=== PATIENT | male | born 1940 | race Hispanic/Latino ===

== ENCOUNTER 2019-11-20 00:20 | Emergency (ER) | payer SELFPAY ==
[2019-11-20 01:24] LABS: #Eosinphils 0.2 thou/uL (0.0-0.7); #Lymphocytes 1.1 thou/uL (1.20-3.40); #Monocytes 0.8 thou/uL (0.11-0.59); %Basophils 0.3 % (0.0-1.0); %Eosinophils 1.9 % (0.0-10.0); %Lymphocytes 10.9 % (21.0-51.0); %Monocytes 8.1 % (0.0-10.0); %Neutrophils 78.7 % (42.0-75.0); Hemoglobin 11.3 g/dL (14.0-18.0); Mean Corpuscular HGB CONC 35.4 g/dL (32.0-36.0); Mean Corpuscular Hemoglobin 30.9 pg (27.0-31.0); Mean Corpuscular Volume 87.4 fL (78.0-98.0); Mean Platelet Volume 6.9 fL (7.4-10.4); Platelet Count 194 thou/uL (130-400); Red Blood Cell (RBC) Count 3.65 mill/uL (4.70-6.10); White Blood Cell (WBC) Count 10.1 thou/uL (4.8-10.8)
[2019-11-20 01:47] LABS: ALT (SGPT) 9 U/L (8-55); AST (SGOT) 21 U/L (5-34); Albumin 3.6 g/dL (3.4-4.8); Alkaline Phosphatase 67 U/L (40-110); Anion Gap 14 mmol/L (10-20); BUN (Urea Nitrogen) 21 mg/dL (8.4-25.7); Bilirubin, Total 0.6 mg/dL (0.2-1.2); Calc. Creatinine Clearance 0 mL/min (70-130); Calcium 9.2 mg/dL (7.8-10.44); Carbon Dioxide 24 mmol/L (23-31); Chloride 99 mmol/L (98-107); Estimated GFR-MDRD 69; Globulin 3.8 g/dL (2.4-3.5); Glucose 197 mg/dL (83-110); Potassium 4.7 mmol/L (3.5-5.1); Protein, Total 7.4 g/dL (5.8-8.1); Sodium 132 mmol/L (136-145); Uric Acid 5.1 mg/dL (3.5-7.2)
[2019-11-20] MEDS ORDERED: Clindamycin/D5W 600 mg/50 ml Premix Bag ONE (02:18)
--- NOTE | 2019-11-20 07:44 | RAD ---
EXAM: XR Ankle Lt 3 View STANDARD PROVIDED CLINICAL HISTORY: Pain FINDINGS: There is no evidence for fracture or other acute osseous abnormality. Alignment appears anatomic. Portia nt spaces appear preserved. Extensive vascular calcifications are seen. IMPRESSION: No evidence for an acute osseous abnormality. If there is persistent clinical concern, conservative m anagement and follow-up imaging advised.
== END 2019-11-20 02:55 | disposition home or self-care (01) ==
LOC: ERS 00:20
DX: L03.116 Cellulitis of left lower limb (principal); E11.9 Type 2 diabetes mellitus without complications; I10 Essential (primary) hypertension; Z86.73 Personal history of transient ischemic attack (TIA), and cerebral infarction without residual deficits; Z79.899 Other long term (current) drug therapy; Z79.84 Long term (current) use of oral hypoglycemic drugs
CPT/HCPCS: 80053; 84550; 85025; 85652; 86140; 96365; J3490

== ENCOUNTER 2019-12-08 16:16 | Emergency (ER) | payer SELFPAY ==
--- NOTE | 2019-12-08 17:58 | RAD ---
THREE VIEWS LEFT FOOT: 12/08/19 HISTORY: Joint pain left foot. COMPARISON: 11/20/19. FINDINGS: There is no evidence of a fracture or dislocation. Alignment appears anatomic. Extensive vascular esperanza cifications are again seen about the foot. Views of the left foot are stable compared to the prior ex am. IMPRESSION: Stable views left foot without evidence of an acute osseous abnormality. If there is persistent clini esperanza concern, conservative management and follow-up imaging is advised. POS: JABIER
== END 2019-12-08 18:00 | disposition home or self-care (01) ==
LOC: ERS 16:16
DX: E11.621 Type 2 diabetes mellitus with foot ulcer (principal); L97.429 Non-pressure chronic ulcer of left heel and midfoot with unspecified severity; I10 Essential (primary) hypertension; Z79.84 Long term (current) use of oral hypoglycemic drugs; Z79.899 Other long term (current) drug therapy

== ENCOUNTER 2020-06-03 18:54 | Inpatient (IN) | payer SELFPAY ==
[~2020-06-03 18:54] MED LIST: Iopamidol-370 76% 500 ML 1 ML ONE
[2020-06-03 19:43] LABS: #Eosinphils 0.1 thou/uL (0.0-0.7); #Lymphocytes 0.7 thou/uL (1.20-3.40); #Monocytes 0.5 thou/uL (0.11-0.59); %Basophils 0.4 % (0.0-1.0); %Eosinophils 0.5 % (0.0-10.0); %Monocytes 4.7 % (0.0-10.0); %Neutrophils 88.4 % (42.0-75.0); Hemoglobin 12.4 g/dL (14.0-18.0); Mean Corpuscular HGB CONC 34.8 g/dL (32.0-36.0); Mean Corpuscular Volume 86.1 fL (78.0-98.0); Mean Platelet Volume 7.1 fL (7.4-10.4); Platelet Count 227 thou/uL (130-400); RBC Distribution Width 12.3 % (11.5-14.5); Red Blood Cell (RBC) Count 4.14 mill/uL (4.70-6.10); White Blood Cell (WBC) Count 11.3 thou/uL (4.8-10.8)
[2020-06-03] MEDS ORDERED: Ondansetron PF 4 MG/2 ML Vial ONE (19:52)
[2020-06-03] MEDS ORDERED: Morphine 4 MG/ML VIAL ONE (19:52)
[2020-06-03 19:59] LABS: Bacteria/HPF None Seen HPF (None Seen); Bilirubin Negative (Negative); Blood, Urine Trace (Negative); Clarity Clear (Clear); Glucose, Urine (Dipstick) Normal (Negative); Ketone, Urine Negative (Negative); Leukocyte 75 Leu/uL (Negative); Nitrite Negative (Negative); Protein, Urine (Dipstick) 300 mg/dL (Neg-Trace); Renal Epithelial 0-3 HPF (None Seen); Specific Gravity, Urine 1.019 (1.002-1.036); Squamous Epithelial 0-3 HPF (0-3); Urobilinogen 3 mg/dL (Less than 2)
[2020-06-03 20:38] LABS: ALT (SGPT) 10 U/L (8-55); AST (SGOT) 16 U/L (5-34); Albumin 4.1 g/dL (3.4-4.8); Alkaline Phosphatase 79 U/L (40-110); Anion Gap 14 mmol/L (10-20); BUN (Urea Nitrogen) 17 mg/dL (8.4-25.7); Bilirubin, Total 0.8 mg/dL (0.2-1.2); Calc. Creatinine Clearance 0 mL/min (70-130); Calcium 9.5 mg/dL (7.8-10.44); Carbon Dioxide 27 mmol/L (23-31); Chloride 96 mmol/L (98-107); Estimated GFR-MDRD 59; Globulin 3.5 g/dL (2.4-3.5); Glucose 219 mg/dL (83-110); Lipase 51 U/L (8-78); Potassium 4.6 mmol/L (3.5-5.1); Protein, Total 7.6 g/dL (5.8-8.1); Sodium 132 mmol/L (136-145)
[2020-06-03] MEDS ORDERED: hydrALAZINE 20 MG/ML VIAL ONE (20:46)
--- NOTE | 2020-06-03 21:58 | CT ---
CT ABDOMEN AND PELVIS WITH IV CONTRAST 06/03/2020 CLINICAL INFORMATION: Right lower quadrant abdominal pain. COMPARISON: None. Technique: Multiple contiguous axial CT images are obtained through the abdomen and pelvis with IV contrast. Cor onal reformatted images are provided. FINDINGS: Lower Chest: Dependent bibasilar atelectasis is present Vessels: Vascular calcifications and atherosclerotic plaque are seen in the lower thoracic as well as abdominal aorta and iliac arteries. Abdomen: Portal vein:Patent Gallbladder: Within normal limits for CT imaging. Liver: within normal limits. Spleen: within normal limits. Pancreas: within normal limits. Adrenals: Mild symmetric thickening of each adrenal gland without nodule seen. Kidneys: Mild cortical scarring is present. Kidneys otherwise demonstrate a normal CT appearance bila terally. Bowel: The stomach is prominently distended with contrast and gas, and there are dilated loops of pro ximal small bowel with loops of small bowel measuring up to 3.9 cm. Loops of small bowel are dilated up to loops of small bowel within the right lower quadrant/upper pelvis which demonstrate fec ulent type material within the small bowel lumen in this region, and this may be related to a phytobezoar. Loops of small bowel distal to this region are normal in caliber. There is a moderate amount retained fecal material seen throughout the colon. Appendix: Not visualized on this examination. There is significant motion seen in the right lower mitra drant due to patient movement. Peritoneum: No ascites or free air; no fluid collection. Mesentery and Retroperitoneum: No enlarged mesenteric or retroperitoneal lymph nodes. Abdominal Wall: There is a low-density area seen in the right inguinal canal,, this could potentially represent site of prior hernia repair or possibly related to fluid. No free intraperitoneal fluid is identified. Pelvis: Reproductive Organs: No pelvic masses. Pelvis within normal limits. Bladder: within normal limits. Bones: Degenerative changes are seen in the spine. IMPRESSION: 1. Evidence of a partial small bowel obstruction with transition zone in the right upper pelvis where there is a dilated loop of small bowel containing feculent type material which may be secondary to phytobezoar. Loops of small bowel distal to this region are normal in caliber. 2. Constipation. 3. Nonvisualization of the appendix due to prominent motion artifact in the right lower quadrant.
[2020-06-03] MEDS ORDERED: Ondansetron PF 4 MG/2 ML Vial IVP PRN (23:58)
[2020-06-03] MEDS ORDERED: Acetaminophen 650 MG Suppository PR PRN (23:58)
[2020-06-04] MEDS ORDERED: HumaLOG 300 UNITS/3 ML VIAL SC PRN ×2 (00:02)
[2020-06-04] MEDS ORDERED: Dextrose 5% in Water 1,000 ML IV PRN (00:02)
[2020-06-04] MEDS ORDERED: Dextrose 50% Abboject 50 ML SYRINGE SLOW IVP PRN (00:02)
[2020-06-04] MEDS ORDERED: hydrALAZINE 20 MG/ML VIAL SLOW IVP PRN ×2 (00:03→12:13)
--- NOTE | 2020-06-04 00:27 | PDOC.HHP ---
Hospitalist HPI - History of Present Illness Abdominal pain and vomiting History of Present Illness: 79M presented to the ED for evaluation of epigastric and lower abdominal pain, n /v since 4am on 06/03. He denies fever or chills. Denies URI symptoms. Reports n/ v but no BM in the last 3 days. Denies history of abdominal surgery. CT ABD/PEL reveals partial SBO near the transition zone in the RU pelvis where there is a dilated loop of small bowel containing feculent type material - may be secondary to phytobezoar. Labs with WBC 11.3, Hgb 12.4, hct 35.6, NA 132 K 4.6 Glucose 219, otherwise unremarkable, Urine with Leukocyte Esterase, WBC, protein, blood but no bacteria or nitrates Vital signs stable. Hospitalist ROS - Review of Systems Constitutional: denies: fever, chills, sweats, weakness, malaise, other Eyes: denies: pain, vision change, conjunctivae inflammation, eyelid inflammation, redness, other ENT: denies: ear pain, ear discharge, nose pain, nose discharge, nose congestion , mouth pain, mouth swelling, throat pain, throat swelling, other Respiratory: denies: cough, dry, shortness of breath, hemoptysis, SOB with excertion, pleuritic pain, sputum, wheezing, other Cardiovascular: denies: chest pain, palpitations, orthopnea, paroxysmal noc. dyspnea, edema, light headedness, other Gastrointestinal: reports: nausea, vomiting, abdominal pain, constipation. 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 Gastrointestinal: reports: Constipation Endocrine: reports: Diabetes - Past Surgical History Past Surgical History: reports: no pertinent history - Family History Family History: reports: no pertinent history - Social History Smoking Status: Never smoker Alcohol: reports: None Drugs: reports: none Living Situation: With Family - Exam General Appearance: NAD, ill appearing General - other findings: cachectic Eye: PERRL, anicteric sclera ENT: normocephalic atraumatic Neck: symmetric Heart: RRR, normal peripheral pulses Respiratory: CTAB, no wheezes Gastrointestinal: soft, non-tender, diminished bowl sounds Extremities: no edema Skin: normal turgor Neurological: no focal deficits Musculoskeletal: generalized weakness Psychiatric: A&O x 3 Hospitalist Results - Labs Result Diagrams: 06/03/20 19:32 06/03/20 19:32 Lab results: WBC 11.3 thou/uL (4.8-10.8) H 06/03/20 19:32 Hgb 12.4 g/dL (14.0-18.0) L 06/03/20 19:32 Hct 35.6 % (42.0-52.0) L 06/03/20 19:32 MCV 86.1 fL (78.0-98.0) 06/03/20 19:32 Plt Count 227 thou/uL (130-400) 06/03/20 19:32 Neutrophils % 88.4 % (42.0-75.0) H 06/03/20 19:32 Sodium 132 mmol/L (136-145) L 06/03/20 19:32 Potassium 4.6 mmol/L (3.5-5.1) 06/03/20 19:32 Chloride 96 mmol/L (98-107) L 06/03/20 19:32 Carbon Dioxide 27 mmol/L (23-31) 06/03/20 19:32 BUN 17 mg/dL (8.4-25.7) 06/03/20 19:32 Creatinine 1.19 mg/dL (0.7-1.3) 06/03/20 19:32 Glucose 219 mg/dL (83-110) H 06/03/20 19:32 Calcium 9.5 mg/dL (7.8-10.44) 06/03/20 19:32 Total Bilirubin 0.8 mg/dL (0.2-1.2) 06/03/20 19:32 AST 16 U/L (5-34) 06/03/20 19:32 ALT 10 U/L (8-55) 06/03/20 19:32 Alkaline Phosphatase 79 U/L (40-110) 06/03/20 19:32 Serum Total Protein 7.6 g/dL (5.8-8.1) 06/03/20 19:32 Albumin 4.1 g/dL (3.4-4.8) 06/03/20 19:32 Lipase 51 U/L (8-78) 06/03/20 19:32 Urine Ketones Negative mg/dL (Negative) 06/03/20 19:32 Urine Blood Trace (Negative) A 06/03/20 19:32 Urine Nitrite Negative (Negative) 06/03/20 19:32 Ur Leukocyte Esterase 75 Leia/uL (Negative) A 06/03/20 19:32 Urine RBC 7-10 HPF (0-3) A 06/03/20 19:32 Urine WBC 11-20 HPF (0-3) A 06/03/20 19:32 Ur Squamous Epith Cells 0-3 HPF (0-3) 06/03/20 19:32 Urine Bacteria None Seen HPF (None Seen) 06/03/20 19:32 - EKG Interpretation EK bpm, NSR, ST segments normal, T waves flattened in lateral leads. Hospitalist H&P A/P - Problem (1) Partial small bowel obstruction Code(s): K56.600 - PARTIAL INTESTINAL OBSTRUCTION, UNSPECIFIED TO CAUSE Status: Acute (2) Hypertension Code(s): I10 - ESSENTIAL (PRIMARY) HYPERTENSION Status: Chronic (3) Diabetes mellitus Code(s): E11.9 - TYPE 2 DIABETES MELLITUS WITHOUT COMPLICATIONS Status: Chronic (4) Hyponatremia Code(s): E87.1 - HYPO-OSMOLALITY AND HYPONATREMIA Status: Acute (5) Nausea & vomiting Code(s): R11.2 - NAUSEA WITH VOMITING, UNSPECIFIED Status: Acute (6) Constipation Code(s): K59.00 - CONSTIPATION, UNSPECIFIED Status: Acute - Plan Plan: NGT to low/interm suction, NPO, NS @75ml/hr, will recheck labs in AM Surgery consult added; Dr. Kaufman is aware of admission Will add PRN hypertensive med Accucheck ACHS, S/S as needed for coverage Zofran for nausea DVT/PUD prevention added Discussed case with Dr. Casillas, agrees to plan
[2020-06-04 00:43] VITALS: BMI 27.6
[2020-06-04] MEDS: Sodium Chloride 0.9% 1,000 ML IV SCH ×2 (01:16→13:27)
[2020-06-04 06:21] LABS: #Lymphocytes 0.7 thou/uL (1.20-3.40); #Monocytes 0.5 thou/uL (0.11-0.59); %Basophils 0.2 % (0.0-1.0); %Eosinophils 0.4 % (0.0-10.0); %Lymphocytes 6.6 % (21.0-51.0); %Monocytes 4.7 % (0.0-10.0); Hemoglobin 12.4 g/dL (14.0-18.0); Mean Corpuscular HGB CONC 33.5 g/dL (32.0-36.0); Mean Corpuscular Volume 86.4 fL (78.0-98.0); Mean Platelet Volume 7.7 fL (7.4-10.4); Platelet Count 209 thou/uL (130-400); RBC Distribution Width 12.5 % (11.5-14.5); Red Blood Cell (RBC) Count 4.26 mill/uL (4.70-6.10); White Blood Cell (WBC) Count 10.2 thou/uL (4.8-10.8)
[2020-06-04 06:28] LABS: ALT (SGPT) 11 U/L (8-55); AST (SGOT) 17 U/L (5-34); Albumin 3.8 g/dL (3.4-4.8); Alkaline Phosphatase 76 U/L (40-110); Anion Gap 11 mmol/L (10-20); BUN (Urea Nitrogen) 16 mg/dL (8.4-25.7); Bilirubin, Total 0.7 mg/dL (0.2-1.2); Calc. Creatinine Clearance 53 mL/min (70-130); Calcium 9.3 mg/dL (7.8-10.44); Carbon Dioxide 28 mmol/L (23-31); Chloride 97 mmol/L (98-107); Estimated GFR-MDRD 66; Globulin 3.1 g/dL (2.4-3.5); Glucose 181 mg/dL (83-110); Potassium 4.3 mmol/L (3.5-5.1); Protein, Total 6.9 g/dL (5.8-8.1); Sodium 132 mmol/L (136-145)
[2020-06-04] MEDS: Famotidine/PF 20 mg/2ml Vial SLOW IVP SCH (08:15)
[2020-06-04] MEDS: Enoxaparin Sodium 30 MG/0.3 ML SYRINGE SC SCH (08:17)
[2020-06-04] MEDS ORDERED: Prevnar 13-Val Conj/PF 0.5 ML SYRINGE IM ONE (09:00)
--- NOTE | 2020-06-04 12:07 | PDOC.HOSPP ---
- Subjective Encounter Date: 06/04/20 Subjective: Patient appears to be a little confused today. He does indicate that his pain is improved. - Objective Vital Signs & Weight: Vital Signs (12 hours) Temp Pulse Resp BP Pulse Ox 06/04/20 09:00 97 06/04/20 08:20 148/68 H 06/04/20 07:57 98.4 F 80 18 180/87 H 97 06/04/20 03:23 98 F 98 18 154/69 H 97 06/04/20 00:53 98 06/04/20 00:42 98 F 87 18 157/69 H 98 Weight Weight 150 lb 12.8 oz Result Diagrams: 06/04/20 05:19 06/04/20 05:19 Additional Labs: Accuchecks 06/04/20 06/04/20 11:54 03:21 POC Glucose 132 H 201 H Hospitalist ROS - Medication Medications: Active Medications Generic Name Dose Route Start Last Admin Trade Name Freq PRN Reason Stop Dose Admin Enoxaparin Sodium 30 mg 06/04/20 09:00 06/04/20 08:17 Lovenox SC Not Given 0900 JANETT Famotidine 20 mg 06/04/20 09:00 06/04/20 08:15 Pepcid SLOW IVP 20 mg DAILY JANETT Administration Sodium Chloride 1,000 mls @ 75 mls/hr 06/04/20 00:15 06/04/20 01:16 Normal Saline 0.9% IV 1,000 mls .[id number] JANETT Administration Ondansetron HCl 4 mg 06/03/20 23:58 06/04/20 06:08 Zofran IVP 4 mg Q6H PRN Administration Nausea/Vomiting - Exam General Appearance: NAD, awake alert Heart: RRR, no murmur, no gallops, no rubs, normal peripheral pulses Respiratory: CTAB, no wheezes, no rales, no ronchi, normal chest expansion, no tachypnea, normal percussion Gastrointestinal: soft, non-distended, tender to palpation (Mildly in the lower abdomen.) Extremities: no cyanosis, no clubbing, no edema Skin: normal turgor Neurological: no focal deficits Musculoskeletal: generalized weakness Psychiatric: normal affect Hosp A/P (1) Partial small bowel obstruction Code(s): K56.600 - PARTIAL INTESTINAL OBSTRUCTION, UNSPECIFIED TO CAUSE Status: Acute (2) Nausea & vomiting Code(s): R11.2 - NAUSEA WITH VOMITING, UNSPECIFIED Status: Acute (3) Hyponatremia Code(s): E87.1 - HYPO-OSMOLALITY AND HYPONATREMIA Status: Acute (4) Diabetes mellitus Code(s): E11.9 - TYPE 2 DIABETES MELLITUS WITHOUT COMPLICATIONS Status: Chronic (5) Hypertension Code(s): I10 - ESSENTIAL (PRIMARY) HYPERTENSION Status: Chronic - Plan Partial small bowel obstruction: Appears to be consistent with a mechanical obstruction like a bezoar. NG tube is in place and the nausea and vomiting has improved. Surgery has been consulted. Continue IV fluids. Hyponatremia: Stable. Continue IV fluids. Diabetes mellitus: Blood sugars are fairly well controlled. Continue coverage. Hypertension: Patient's blood pressures running a little bit high. He is unable to take p.o.' s and may need some as needed IV medications.
[2020-06-04] MEDS ORDERED: Magnesium Citrate 300 ML BOT PO SCH (12:30)
[2020-06-04] MEDS ORDERED: Acetaminophen 650 MG/20.3 ML UDCUP PO PRN (14:00)
--- NOTE | 2020-06-04 23:40 | CON ---
DATE OF CONSULTATION: 06/04/2020 REQUESTING PHYSICIAN: Elena Pringle. 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 The patient denies any diarrhea, fever, or chills. He denies any hematemesis. Last bowel movement was 3 days prior to presentation. He denies any hematochezia or melena. The patient denies any unexplained weight loss. PAST MEDICAL HISTORY: Pertinent for essential hypertension and chronic constipation. The patient also has type 2 diabetes mellitus. PAST SURGICAL HISTORY: Denies any previous surgeries. FAMILY HISTORY: Noncontributory for this patient's age. CURRENT MEDICATIONS: Prior to admission includes, 1. Metformin 1000 mg p.o. b.i.d. 2. Lisinopril 20 mg p.o. daily. ALLERGIES: THE PATIENT DENIES ANY KNOWN DRUG ALLERGIES. REVIEW OF SYSTEMS: Ten-point review of systems essentially unremarkable except as stated in past medical history and chief complaint. PHYSICAL EXAMINATION: GENERAL: An 79-year-old normally developed man, who is otherwise coherent, interactive, and appears stated age. The patient was alert and oriented x3. He appeared to be in no acute distress at time of my evaluation. He denied any abdominal pain on my evaluation. HEENT: He had a nasogastric tube, which was placed in the emergency department and had returned moderate amount of nonbilious effluent. His biggest complaint was pain from the nasogastric tube. Had an indwelling nasogastric tube. Minimum output from the nasogastric tube in my presence. VITAL SIGNS: On my examination this morning include blood pressure 163/72, pulse 72, respiratory rate 18, temperature 98.2 degrees Fahrenheit, oxygen saturation 97% on room air. HEART: Regular rate and rhythm. LUNGS: Clear to auscultation bilaterally. Breathing, regular and nonlabored. ABDOMEN: Soft, nontender, nondistended. NEUROLOGIC: There are no focal deficits present. LABORATORY FINDINGS: Include a CBC this morning with 10,200 white blood cells, hemoglobin and hematocrit 12.4 and 36.8 respectively, platelet count is 209,000. Metabolic profile: Sodium 132, potassium 4.3, chloride 97, bicarb 28, BUN 16, creatinine 1.07, glucose 181. Total bilirubin normal at 0.7, AST and ALT 17 and 11 respectively. I personally reviewed the CT scan of the abdomen and pelvis, which was obtained yesterday. This shows a sentinel loop of dilated small bowel in the left mid-abdomen. There is extensive amount of stool in the colon and gas throughout the colon and part of small bowel. Clearly, there are gas and hard stool in the rectum. IMPRESSION: 1. Resolved abdominal pain, nausea, and vomiting. 2. Significant fecal stasis, likely secondary to chronic constipation. 3. There is no clinical evidence of acute small-bowel obstruction at this time. 4. I discontinued the nasogastric tube. The patient will be started on a clear liquid diet and stool softeners. No acute surgical indication for this patient at this time. Upon return of bowel function, diet may be advanced. Thank you again, Ms. Pringle, for allowing me the opportunity to participate in the care of this patient. Job ID: [id number]
[2020-06-05] MEDS: Enoxaparin Sodium 30 MG/0.3 ML SYRINGE SC SCH (08:20)
[2020-06-05] MEDS: Famotidine/PF 20 mg/2ml Vial SLOW IVP SCH (08:20)
[2020-06-05 12:18] VITALS: TEMP 98.5
[2020-06-05 12:50] VITALS: BP 138/60
--- NOTE | 2020-06-05 16:37 | PRG ---
DATE OF SERVICE: 06/05/2020 SUBJECTIVE: Mr. Alfonso is an 79-year-old man, admitted with partial small-bowel obstruction. This morning, the patient denies any abdominal pain. He is tolerating diet. He has had multiple bowel movements. OBJECTIVE: VITAL SIGNS: Stable. The patient is afebrile. ABDOMEN: Soft, nontender, and nondistended. IMPRESSION: Resolved acute partial small-bowel obstruction. No further surgical indication for this patient at this time. The patient may be discharged home at the discretion of Primary Service. General Surgery will sign off and be available to re-evaluate the patient on demand. Job ID: [id number]
== END 2020-06-05 16:27 | disposition home or self-care (01) | DRG 389 ==
LOC: ERS 18:54 → T4-B 22:57
PROVIDERS: ADMIT Internal Medicine; ATTEND Internal Medicine
DX: K56.600 Partial intestinal obstruction, unspecified as to cause (principal); E87.1 Hypo-osmolality and hyponatremia; R64 Cachexia; E11.9 Type 2 diabetes mellitus without complications; I10 Essential (primary) hypertension; K59.09 Other constipation; Z79.84 Long term (current) use of oral hypoglycemic drugs; Z79.899 Other long term (current) drug therapy; Z68.27 Body mass index [BMI] 27.0-27.9, adult
CPT/HCPCS: 36415; 36416; 74177; 80053; 81003; 81015; 83690; 85025; 93005; J0360; J2270; J2405; Q9967; S0028

== ENCOUNTER 2020-09-14 18:42 | Emergency (ER) | payer SELFPAY ==
--- NOTE | 2020-09-14 19:59 | RAD ---
PORTABLE CHEST: 09/14/20 HISTORY: Elevated systolic blood pressure. Heart size and mediastinum are within normal limits. The lungs appear clear of any infiltrative proce ss. Nodular density in the left base is most likely nipple shadow. Film with nipple markers would be needed to confirm this. IMPRESSION: No active intrathoracic disease. POS: WENDIE
[2020-09-14 20:17] LABS: #Basophils 0.1 thou/uL (0.0-0.2); #Eosinphils 0.3 thou/uL (0.0-0.7); #Lymphocytes 1.2 thou/uL (1.20-3.40); #Monocytes 0.6 thou/uL (0.11-0.59); #Neutrophils 4.6 thou/uL (1.40-6.50); %Basophils 1.1 % (0.0-1.0); %Lymphocytes 18.4 % (21.0-51.0); %Monocytes 9.1 % (0.0-10.0); %Neutrophils 67.4 % (42.0-75.0); Hemoglobin 12.8 g/dL (14.0-18.0); Mean Corpuscular HGB CONC 35.6 g/dL (32.0-36.0); Mean Corpuscular Hemoglobin 30.7 pg (27.0-31.0); Mean Corpuscular Volume 86.1 fL (78.0-98.0); Mean Platelet Volume 6.6 fL (7.4-10.4); Platelet Count 205 thou/uL (130-400); RBC Distribution Width 12.4 % (11.5-14.5); Red Blood Cell (RBC) Count 4.17 mill/uL (4.70-6.10); White Blood Cell (WBC) Count 6.8 thou/uL (4.8-10.8)
--- NOTE | 2020-09-14 21:11 | CT ---
CT OF BRAIN PERFORMED WITHOUT CONTRAST ENHANCEMENT 09/14/20 HISTORY: Hypertension. Headache. There is generalized ventricular and sulcal prominence. Decreased attenuation of the periventricular white matter is consistent with some chronic white matter change. There are no signs of intracerebral hemorrhage extra-axial fluid collections. The mastoid air cells and visualized sinuses are clear. IMPRESSION: Atrophy and chronic white matter change. No acute intracranial abnormalities. POS: WENDIE
[2020-09-14 21:17] LABS: ALT (SGPT) 13 U/L (8-55); AST (SGOT) 19 U/L (5-34); Alkaline Phosphatase 78 U/L (40-110); Anion Gap 17 mmol/L (10-20); BUN (Urea Nitrogen) 18 mg/dL (8.4-25.7); Bilirubin, Total 0.4 mg/dL (0.2-1.2); CK (CPK) 57 U/L (30-200); Calc. Creatinine Clearance 0 mL/min (70-130); Calcium 9.6 mg/dL (7.8-10.44); Carbon Dioxide 21 mmol/L (23-31); Chloride 100 mmol/L (98-107); Estimated GFR-MDRD 70; Globulin 3.7 g/dL (2.4-3.5); Glucose 149 mg/dL (83-110); Lipase 52 U/L (8-78); Potassium 5.6 mmol/L (3.5-5.1); Protein, Total 7.7 g/dL (5.8-8.1); Sodium 132 mmol/L (136-145)
--- NOTE | 2020-09-16 13:28 | EKG ---
Test Reason : Blood Pressure : / mmHG Vent. Rate : 066 BPM Atrial Rate : 066 BPM P-R Int : 204 ms QRS Dur : 070 ms QT Int : 384 ms P-R-T Axes : 057 066 145 degrees QTc Int : 402 ms Normal sinus rhythm Nonspecific T wave abnormality Abnormal ECG Confirmed by ARGENTINA LEWIS DO ([id number]), newspaper managing editor RAE MATHEWS ([id number]) on 09/16/2020 1:28:22 PM Referred By: Confirmed By:ARGENTINA LEWIS DO
== END 2020-09-14 21:15 | disposition home or self-care (01) ==
LOC: EDSEX 18:42 → ERS 18:42 → MERGE 18:42 → ERS 21:15
DX: I10 Essential (primary) hypertension (principal); Z86.73 Personal history of transient ischemic attack (TIA), and cerebral infarction without residual deficits
CPT/HCPCS: 70450; 71045; 80053; 82550; 83690; 84484; 85025; 93005

== ENCOUNTER 2020-12-12 11:13 | Inpatient (IN) | payer MEDICAID, SELFPAY ==
[2020-12-12 11:40] LABS: #Eosinphils 0.1 thou/uL (0.0-0.7); #Monocytes 0.7 thou/uL (0.11-0.59); #Neutrophils 9.5 thou/uL (1.40-6.50); %Basophils 0.2 % (0.0-1.0); %Eosinophils 1.1 % (0.0-10.0); %Lymphocytes 8.6 % (21.0-51.0); %Monocytes 6.2 % (0.0-10.0); %Neutrophils 83.9 % (42.0-75.0); Hemoglobin 10.6 g/dL (14.0-18.0); Mean Corpuscular HGB CONC 32.8 g/dL (32.0-36.0); Mean Corpuscular Hemoglobin 28.5 pg (27.0-31.0); Mean Platelet Volume 5.7 fL (7.4-10.4); Platelet Count 332 thou/uL (130-400); RBC Distribution Width 11.8 % (11.5-14.5); Red Blood Cell (RBC) Count 3.72 mill/uL (4.70-6.10); White Blood Cell (WBC) Count 11.3 thou/uL (4.8-10.8)
--- NOTE | 2020-12-12 11:55 | RAD ---
Exam:3 views left foot HISTORY: Swelling and discoloration of the left foot. Nonhealing wound. COMPARISON: 12/08/2019 FINDINGS: There is bony mineralization involving the entire first digit at the level of the distal ph alanx, proximal phalanx and metatarsal. There is ulceration of the soft tissues of the distal aspect of the first digit. There are no fractures. Lisfranc alignment is maintained. Joint spaces are preserved. Mild bone demineralization involving the midfoot and hindfoot. Progression of extensive atheroscleros is. IMPRESSION: 1. Soft tissue ulceration involving the distal aspect of the first digit. There is demineralization i nvolving the entire first digit. Correlate for possible osteomyelitis, most likely at the distal phalanx of the first digit. 2. Bony mineralization along the midfoot and hindfoot is nonspecific. Correlate for osteopenia. 3. Extensive atherosclerosis.
[2020-12-12 12:01] LABS: ALT (SGPT) 14 U/L (8-55); AST (SGOT) 13 U/L (5-34); Albumin 3.7 g/dL (3.4-4.8); Alkaline Phosphatase 81 U/L (40-110); Anion Gap 13 mmol/L (10-20); BUN (Urea Nitrogen) 18 mg/dL (8.4-25.7); Bilirubin, Total 0.4 mg/dL (0.2-1.2); Calc. Creatinine Clearance 0 mL/min (70-130); Carbon Dioxide 27 mmol/L (23-31); Chloride 98 mmol/L (98-107); Globulin 3.4 g/dL (2.4-3.5); Glucose 182 mg/dL (83-110); Potassium 4.9 mmol/L (3.5-5.1); Protein, Total 7.1 g/dL (5.8-8.1); Sodium 133 mmol/L (136-145)
[2020-12-12] MEDS ORDERED: Morphine 4 MG/ML VIAL ONE (13:06)
[2020-12-12] MEDS ORDERED: Ondansetron PF 4 MG/2 ML Vial ONE (13:06)
[2020-12-12] MEDS ORDERED: Vancomycin HCl 1.25 GM in Sodium Chloride 0.9% 250 ML 250 ML IVPB SCH (13:15)
[2020-12-12] MEDS ORDERED: Piperacillin/Tazobactam 4.5 GM VIAL ONE ×2 (14:59→15:32)
[2020-12-12] MEDS ORDERED: Acetaminophen 325 MG TAB PO PRN (15:24)
[2020-12-12] MEDS ORDERED: HYDROcodone/Acetaminophen 5/325 mg Tablet PO PRN (15:24)
[2020-12-12] MEDS ORDERED: Senokot S 8.6-50 MG TAB PO PRN (15:24)
[2020-12-12] MEDS ORDERED: HumaLOG 300 UNITS/3 ML VIAL SC PRN (15:26)
[2020-12-12] MEDS ORDERED: Dextrose 50% Abboject 50 ML SYRINGE SLOW IVP PRN ×2 (15:26→17:08)
[2020-12-12] MEDS ORDERED: Dextrose 5% in Water 1,000 ML IV PRN ×2 (15:26→17:08)
[2020-12-12] MEDS ORDERED: hydrALAZINE 20 MG/ML VIAL SLOW IVP PRN (17:07)
[2020-12-12 18:01] VITALS: BMI 18.7
--- NOTE | 2020-12-12 18:12 | HP ---
CHIEF COMPLAINT: Left great toe pain. 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 More swelling, redness, and pain. The pain is about 10/10. The patient does follow with the wound care arranged by the primary care provider and he is on clindamycin 300 mg four times a day since October. He was hospitalized in May 2020 for small bowel obstruction. X-ray here showed soft tissue ulcerations involving the distal aspect of the 1st digit, extensive arthrosclerosis, bony mineralization, and possible osteomyelitis. His sedimentation rate is elevated. ER contacted, I believe, Dr. Desai. The patient speaks Luxembourgish and the daughter at the bedside giving the history. REVIEW OF SYSTEMS: A 13-point review of systems reviewed and mostly negative including no recent fever, night sweats, or chills. No chest pain, productive cough. No orthopnea or PND. No nausea, vomiting, abdominal pain, constipation, hematuria, dysuria, or hematochezia. Denies headache or blurriness. PAST MEDICAL HISTORY: 1. CVA without residual deficits. 2. Type 2 diabetes mellitus. 3. Peripheral vascular disease. 4. Hypertension. SURGICAL HISTORY: Stent placement in the left leg. SOCIAL HISTORY: No smoking, drugs, or alcohol use. The patient lives with the daughter. ALLERGIES: HE HAS NO KNOWN DRUG ALLERGY. MEDICATIONS: 1. Lisinopril 20 mg daily. 2. Metformin 1000 mg twice a day. 3. Clindamycin 300 mg four times a day. PHYSICAL EXAMINATION: VITAL SIGNS: Temperature 99.1, pulse 76, blood pressure 168/74. GENERAL: The patient is alert, oriented. He is not toxic looking. HEENT: Pupils are equal, round, and reactive to light. Anicteric. Mucous membranes moist. CARDIOVASCULAR: Regular rate and rhythm without murmurs, rubs, or gallops. LUNGS: Clear to auscultation bilaterally without wheezing, rales, or rhonchi. ABDOMEN: Soft, nontender, nondistended. Good bowel sounds. EXTREMITIES: Again, left toe quite swollen, mildly erythematic. 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 Dorsalis pedis pulses quite feeble. No discharge noted from the site. It is quite tender. LABORATORY DATA: White count 11.3, hemoglobin 10.6, platelet is 332. His sedimentation rate is 120. Creatinine 1.08 and sodium 133, blood glucose 182. Rest of the CMP panel in the normal range. IMPRESSION AND PLAN: This is an 80-year-old male with a history of peripheral vascular disease, type 2 diabetes mellitus, presenting with left great toe infection, possibly concerning for an osteomyelitis as his inflammatory markers are quite high. This is ongoing for the last six months. ... We will get blood culture, wound culture, vancomycin and Zosyn for now. Request the pharmacy to dose the vancomycin and get the trough. 1. Type 2 diabetes mellitus. Continue with metformin and sliding scale insulin. Diabetic diet. 2. Hypertension. Continue with lisinopril. His creatinine is in the normal range and since his blood pressure is little high, we will provide hydralazine as well. Consulted Dr. Desai. 3. I do not see aspirin or statin for his peripheral vascular disease. I will go ahead and start the same. DVT prophylaxis with Lovenox. Job ID: [id number] [facility]
[2020-12-12] MEDS: metFORMIN 500 MG TAB PO SCH (18:23)
[2020-12-12] MEDS: Docusate 100 MG CAP PO SCH (20:55)
[2020-12-12] MEDS: Piperacillin/Tazobactam 3.375 GM in Sodium Chloride 0.9% 100 ML IVPB SCH (20:55)
[2020-12-12] MEDS: Atorvastatin Calcium 20 MG TAB PO SCH (20:55)
[2020-12-13] MEDS: Piperacillin/Tazobactam 3.375 GM in Sodium Chloride 0.9% 100 ML IVPB SCH ×3 (05:05→21:25)
[2020-12-13 05:49] LABS: Hemoglobin A1c 6.9 % (4.0-6.0)
[2020-12-13 05:54] LABS: #Eosinphils 0.2 thou/uL (0.0-0.7); #Lymphocytes 1.7 thou/uL (1.20-3.40); #Monocytes 0.8 thou/uL (0.11-0.59); #Neutrophils 7.2 thou/uL (1.40-6.50); %Eosinophils 2.1 % (0.0-10.0); %Lymphocytes 17.4 % (21.0-51.0); %Monocytes 8.5 % (0.0-10.0); Hemoglobin 9.2 g/dL (14.0-18.0); Mean Corpuscular HGB CONC 32.2 g/dL (32.0-36.0); Mean Corpuscular Hemoglobin 27.8 pg (27.0-31.0); Mean Corpuscular Volume 86.3 fL (78.0-98.0); Mean Platelet Volume 5.9 fL (7.4-10.4); Platelet Count 315 thou/uL (130-400); Red Blood Cell (RBC) Count 3.29 mill/uL (4.70-6.10)
[2020-12-13 06:02] LABS: Anion Gap 13 mmol/L (10-20); BUN (Urea Nitrogen) 21 mg/dL (8.4-25.7); Calc. Creatinine Clearance 31 mL/min (70-130); Calcium 8.8 mg/dL (7.8-10.44); Carbon Dioxide 27 mmol/L (23-31); Cardiac Risk 3.4 (Less than 4.5); Chloride 102 mmol/L (98-107); Cholesterol 139 mg/dl (< 200 Desired); Glucose 122 mg/dL (83-110); HDL Cholesterol 41 mg/dL (>60 Neg Risk); LDL Cholesterol, Calculated 82 mg/dL; Sodium 137 mmol/L (136-145); Triglycerides 81 mg/dL (Less than 150)
[2020-12-13 06:17] LABS: SARS-CoV-2 MS2 Positive; SARS-CoV-2 N Gene Negative; SARS-CoV-2 S Gene Negative; SARS-CoV-2 by NAA Not Detected (NotDetected); SARS-CoV-2 orf1ab Negative
[2020-12-13] MEDS: metFORMIN 500 MG TAB PO SCH ×2 (08:11→18:15)
[2020-12-13] MEDS ORDERED: Fentanyl 100 MCG/2 ML VIAL ONE ×2 (08:47→09:27)
[2020-12-13] MEDS: Enoxaparin Sodium 40 MG/0.4 ML SYRINGE SC SCH (08:57)
[2020-12-13] MEDS: Docusate 100 MG CAP PO SCH ×2 (08:57→21:25)
[2020-12-13] MEDS: Lisinopril 20 MG TAB PO SCH ×2 (09:02→12:55)
--- NOTE | 2020-12-13 09:44 | CON ---
DATE OF CONSULTATION: Ted Alfonso is an 80-year-old male, [place] speaking only from [place], and non citizen, has constant pain in his left foot to his ankle. This began last year when he was with family in [place] and experienced an injury and around that time was having constant chronic pain. He went to [facility] for interventions, resulted in stents being in place below the knee in the tibial vessels. Despite that intervention, the patient's pain continued and was disabling. At night, he sleeps with his leg hanging off the side of the bed. He spends most of the day in a recliner with his legs dependent. He was admitted this hospitalization from the hospitalist service. X-rays of left foot reveal osteomyelitis of the great toe, where he has chronic eschar, granulation tissue, but no cellulitis. He was afebrile. White count 10, hemoglobin 9.2. Basic metabolic profile normal. BUN and creatinine 21 and 1.25 respectively. Glucose . Hemoglobin A1c 6.9. The patient is a non citizen. He has a wheelchair, walker, crutches, shower chair at home. ALLERGIES: NONE. TOBACCO: None. ALCOHOL: None. MEDICATIONS: At home, 1. Metformin. 2. Lisinopril. 3. Amlodipine. In the hospital, he has been placed on Zosyn and vancomycin, although there is no cellulitis of the foot. PAST SURGICAL HISTORY: Appendectomy, open incision in right lower quadrant, interventional angiography and stent tibial vessel placement at [facility] last year, left leg, below the knee. REVIEW OF SYSTEMS: Ten-point noncontributory. PHYSICAL EXAMINATION: VITAL SIGNS: 5 feet 3, 105 pounds, BMI 18. 97.9, 69, 169/75. LUNGS: Clear to auscultation. CARDIAC: Regular rate and rhythm without murmur or gallop. ABDOMEN: Soft, nontender. Scar in right lower quadrant for history of open appendectomy in the past. EXTREMITIES: Palpable femoral popliteal pulses, both legs. Nonpalpable pedal pulses to left foot. Left foot reveals chronic ischemic changes to the ankle. It is hypesthetic with great amount of pain just touching the skin. He has an eschar over his left great toe without cellulitis and without purulence. He has nonpalpable pedal pulses, dorsalis pedis, posterior tibial, but has very faintly dopplerable dorsalis pedis and posterior tibial. No ankle edema. Serology, negative for COVID, 12/12/2020. 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 Interventional attempts in [place] last year did not give him any relief. The patient is tired of the pain and the family is tired of seeing him in pain, and plan is for left below-knee amputation. Discussion held with the family regarding avoiding left knee contracture or placing a pillow or blanket on the left BKA stump postoperatively [id number] to promote knee extension. Also education given as to pillows or blankets beneath the right leg above the right heel to prevent heel decubitus. Risks and benefits explained. PLAN: 1. Left BKA today. 2. Anemia, needs further workup. 3. Diabetes mellitus. 4. Hypertension. 5. Elevated cholesterol. 6. PAD. Job ID: [id number]
[2020-12-13] MEDS ORDERED: Ropivacaine 0.5% HCl/PF (150 MG/30 ML VIAL) ONE ×2 (09:49→12:02)
[2020-12-13] MEDS ORDERED: Fentanyl 100 MCG/2 ML VIAL IV PRN (09:51)
[2020-12-13] MEDS ORDERED: Ropivacaine HCl/PF 250 ML in Premix Bag 1 BAG NERVE BLCK SCH (10:00)
[2020-12-13] MEDS ORDERED: Ondansetron PF 4 MG/2 ML Vial IVP PRN (10:00)
[2020-12-13] MEDS ORDERED: Zolpidem Tartrate 5 MG TAB PO PRN (10:00)
[2020-12-13] MEDS ORDERED: HYDROcodone/Acetaminophen 10/325 mg Tablet PO PRN (10:00)
[2020-12-13] MEDS ORDERED: traMADol HCl 50 MG TAB PO PRN ×2 (10:00)
[2020-12-13] MEDS ORDERED: Promethazine HCl 25 MG/ML VIAL IM PRN (10:00)
--- NOTE | 2020-12-13 11:15 | OP ---
DATE OF PROCEDURE: 12/13/2020 PREOPERATIVE DIAGNOSES: Diabetes, hypertension, arteriosclerotic peripheral vascular disease with past stent intervention, tibial vessels with ischemic rest pain, left foot osteomyelitis left great toe without cellulitis. POSTOPERATIVE DIAGNOSES: Diabetes, hypertension, arteriosclerotic peripheral vascular disease with past stent intervention, tibial vessels with ischemic rest pain, left foot osteomyelitis left great toe without cellulitis. PROCEDURE PERFORMED: Left below-knee amputation. ANESTHESIA: General regional. PROCEDURE: The patient was taken to the operating room, where under regional infusional catheter and general anesthesia LMA, a left lower extremity was prepared with ChloraPrep and draped in routine fashion. An incision was made for left below-knee amputation with a long posterior flap carried down to the skin, subcutaneous tissue, fascia, dividing the muscular layers with a cautery and the vascular bundles between clamps ligated with 2-0 silk ties. Tibia cleared proximally. The periosteum divided with a Gigli saw, bevelling anterior edge cephalad, smoothed with a rasp. Fibula cut about an inch above the cut edge of the tibia. Completion amputation performed. Good hemostasis obtained with cautery and 2-0 Vicryl. Fascia was approximated with [id number] suture of 2-0 Vicryl and skin with tomi. Sterile dressing applied. The patient tolerated the procedure well. Job ID: [id number]
[2020-12-13] MEDS ORDERED: Lidocaine 1% PF 5 ML VIAL ONE (12:02)
[2020-12-13] MEDS ORDERED: ePHEDrine 50 MG/ML VIAL ONE (12:02)
[2020-12-13] MEDS ORDERED: PROPOFOL 200 MG/20 ML VIAL ONE (12:02)
[2020-12-13] MEDS ORDERED: Ondansetron PF 4 MG/2 ML Vial ONE (12:02)
[2020-12-13] MEDS: Acetaminophen 500 MG TAB PO SCH ×2 (12:55→18:15)
[2020-12-13] MEDS: Gabapentin 100 MG CAP PO SCH ×2 (14:31→21:25)
[2020-12-13] MEDS: Vancomycin HCl 750 MG in Sodium Chloride 0.9% 250 ML 250 ML IVPB SCH (15:02)
--- NOTE | 2020-12-13 17:12 | PDOC.HOSPP ---
- Subjective Encounter Date: 12/13/20 Encounter Time: 11:00 Subjective: Patient seen and examined for diabetic foot infection. Underwent left below- knee amputation. No other overnight issues. - Objective Vital Signs & Weight: Vital Signs (12 hours) Temp Pulse Resp BP BP Pulse Ox 12/13/20 16:00 99.1 F 65 16 152/69 H 97 12/13/20 12:05 97.8 F 75 16 186/83 H 98 12/13/20 08:00 99.6 F 65 16 175/78 H 98 Weight Admit Weight 105 lb 11.2 oz Weight 105 lb 11.2 oz I&O: 12/12/20 12/13/20 12/14/20 06:59 06:59 06:59 Intake Total 240 Output Total 425 Balance -185 Result Diagrams: 12/13/20 04:43 12/13/20 04:43 Additional Labs: Accuchecks 12/13/20 12/13/20 12/13/20 16:32 12:54 04:43 POC Glucose 139 H 155 H 114 H 12/12/20 21:19 POC Glucose 155 H Abnormal Lab Results - Last 48 hrs 12/12/20 11:30: WBC 11.3 H, RBC 3.72 L, Hgb 10.6 L, Hct 32.3 L, MPV 5.7 L, Neutrophils % 83.9 H, Lymphocytes % 8.6 L, Neutrophils # 9.5 H, Lymphocytes # 1.0 L, Monocytes # 0.7 H 12/12/20 11:30: Sodium 133 L, Albumin/Globulin Ratio 1.1 L 12/12/20 11:30: ESR Westergren 120 H 12/13/20 04:43: RBC 3.29 L, Hgb 9.2 L, Hct 28.4 L, MPV 5.9 L, Lymphocytes % 17.4 L, Neutrophils # 7.2 H, Monocytes # 0.8 H 12/13/20 04:43: Hemoglobin A1c 6.9 H 12/13/20 04:43: C-Reactive Protein 4.15 H 12/13/20 09:51: Crossmatch See Detail Microbiology - Entire Visit 12/12/20 13:49 Venous blood - Right Arm Blood Culture - Preliminary Coagulase Neg Staphylococcus 12/12/20 13:49 Venous blood - Left Hand Blood Culture - Preliminary Specimen has been received and culture in progress. No Growth to date. 12/12/20 13:35 Foot - Pending Bacterial Culture - Preliminary Staphylococcus aureus Presumptive Pseudo aeruginosa Radiology Reviewed by me: Yes (Left foot x-rayno gas) EKG Reviewed by me: Yes (Sinus rhythm on telemetry) Hospitalist ROS - Review of Systems Cardiovascular: denies: chest pain, palpitations, orthopnea, paroxysmal noc. dyspnea, edema, light headedness, other Gastrointestinal: denies: nausea, vomiting, abdominal pain, diarrhea, constipation, melena, hematochezia, other - Medication Medications: Active Medications Generic Name Dose Route Start Last Admin Trade Name Freq PRN Reason Stop Dose Admin Acetaminophen 1,000 mg 12/13/20 12:00 12/13/20 12:55 Acetaminophen 500 Mg Tab PO 1,000 mg Q6HR JANETT Administration Atorvastatin Calcium 20 mg 12/12/20 21:00 12/12/20 20:55 Atorvastatin Calcium 20 Mg Tab PO 20 mg HS JANETT Administration Docusate Sodium 100 mg 12/12/20 21:00 12/13/20 08:57 Docusate 100 Mg Cap PO Not Given BID JANETT Enoxaparin Sodium 40 mg 12/13/20 09:00 12/13/20 08:57 Enoxaparin Sodium 40 Mg/0.4 Ml Syringe SC Not Given 0900 JANETT Gabapentin 100 mg 12/13/20 15:00 12/13/20 14:31 Gabapentin 100 Mg Cap PO 100 mg TID JANETT Administration Vancomycin HCl 750 mg/ Sodium 250 mls @ 250 mls/hr 12/13/20 14:00 12/13/20 15:02 Chloride IVPB 250 mls 1400 JANETT Administration Piperacillin Sod/Tazobactam 100 mls @ 200 mls/hr 12/12/20 22:00 12/13/20 14:32 Sod 3.375 gm/ Sodium Chloride IVPB 100 mls Q8HR JANETT Administration Lisinopril 20 mg 12/13/20 09:00 12/13/20 12:55 Lisinopril 20 Mg Tab PO 20 mg DAILY JANETT Administration Metformin HCl 1,000 mg 12/12/20 17:00 12/13/20 08:11 Metformin 500 Mg Tab PO Not Given BID-[facility] - Exam General Appearance: NAD Neck: supple, no JVD Heart: RRR, no gallops Respiratory: no wheezes, no ronchi Gastrointestinal: soft, non-tender, normal bowel sounds Extremities - other findings: Status post left BKA Neurological: no new deficit Musculoskeletal: generalized weakness Hosp A/P - Plan DVT proph w/lovenox Left diabetic foot infection with osteomyelitisPOA Diabetes mellitus type 2 Hypertension Peripheral vascular disease Hypertension Hyperlipidemia Chronic anemia suspected due to nutritional deficiency Hyponatremia Plan: Status post left below-knee amputation today. Will continue empiric vancomycin and Zosyn. Monitor vancomycin level. Continue sliding scale. Will continue home dose of amlodipine, lisinopril. Continue Lovenox for DVT prophylaxis. Low-dose aspirin. Continue other medications as above
[2020-12-13] MEDS: Amlodipine 5 MG TAB PO SCH (21:25)
[2020-12-13] MEDS: Atorvastatin Calcium 20 MG TAB PO SCH (21:25)
[2020-12-14] MEDS: Acetaminophen 500 MG TAB PO SCH ×5 (00:27→23:46)
[2020-12-14] MEDS: HYDROcodone/Acetaminophen 10/325 mg Tablet PO PRN (04:07)
[2020-12-14] MEDS: Piperacillin/Tazobactam 3.375 GM in Sodium Chloride 0.9% 100 ML IVPB SCH ×3 (06:17→20:42)
[2020-12-14 07:07] LABS: #Eosinphils 0.1 thou/uL (0.0-0.7); #Lymphocytes 0.9 thou/uL (1.20-3.40); #Monocytes 0.7 thou/uL (0.11-0.59); %Basophils 0.3 % (0.0-1.0); %Eosinophils 1.3 % (0.0-10.0); %Lymphocytes 8.9 % (21.0-51.0); %Monocytes 6.8 % (0.0-10.0); %Neutrophils 82.7 % (42.0-75.0); Hemoglobin 8.8 g/dL (14.0-18.0); Mean Corpuscular HGB CONC 33.7 g/dL (32.0-36.0); Mean Corpuscular Hemoglobin 29.2 pg (27.0-31.0); Mean Corpuscular Volume 86.7 fL (78.0-98.0); Mean Platelet Volume 5.6 fL (7.4-10.4); Platelet Count 254 thou/uL (130-400); RBC Distribution Width 11.8 % (11.5-14.5); White Blood Cell (WBC) Count 9.7 thou/uL (4.8-10.8)
[2020-12-14 07:30] LABS: Anion Gap 14 mmol/L (10-20); BUN (Urea Nitrogen) 19 mg/dL (8.4-25.7); Calc. Creatinine Clearance 32 mL/min (70-130); Calcium 8.4 mg/dL (7.8-10.44); Carbon Dioxide 25 mmol/L (23-31); Chloride 103 mmol/L (98-107); Glucose 164 mg/dL (83-110); Magnesium 1.9 mg/dL (1.6-2.6); Potassium 4.7 mmol/L (3.5-5.1); Sodium 137 mmol/L (136-145)
[2020-12-14] MEDS: metFORMIN 500 MG TAB PO SCH ×2 (08:45→17:47)
[2020-12-14] MEDS: Amlodipine 5 MG TAB PO SCH ×2 (08:50→20:42)
[2020-12-14] MEDS: Aspirin 81 mg Enteric Coated Tablet PO SCH (08:51)
[2020-12-14] MEDS: Enoxaparin Sodium 40 MG/0.4 ML SYRINGE SC SCH (08:52)
[2020-12-14] MEDS: Lisinopril 20 MG TAB PO SCH (08:54)
[2020-12-14] MEDS: Gabapentin 100 MG CAP PO SCH ×3 (08:54→20:42)
[2020-12-14] MEDS: Docusate 100 MG CAP PO SCH ×2 (08:54→20:42)
[2020-12-14] MEDS: HumaLOG 300 UNITS/3 ML VIAL SC PRN (11:47)
[2020-12-14 13:57] LABS: Vancomycin, Trough 9.9 ug/mL
[2020-12-14] MEDS: Vancomycin HCl 750 MG in Sodium Chloride 0.9% 250 ML 250 ML IVPB SCH (14:53)
[2020-12-14] MEDS: Vancomycin HCl 1.25 GM in Sodium Chloride 0.9% 250 ML 250 ML IVPB SCH (15:38)
--- NOTE | 2020-12-14 16:45 | PDOC.HOSPP ---
- Subjective Encounter Date: 12/14/20 Encounter Time: 10:00 Subjective: Patient seen and examined for diabetic foot infection. Pain controlled. Denies any nausea or vomiting. - Objective Vital Signs & Weight: Vital Signs (12 hours) Temp Pulse Pulse Resp BP BP BP 12/14/20 16:34 78 155/70 H 12/14/20 16:24 98.2 F 74 16 171/74 H 12/14/20 11:29 98.7 F 79 16 167/72 H 12/14/20 09:28 96 187/85 H 12/14/20 08:54 167/72 H 12/14/20 08:50 74 167/72 H 12/14/20 08:16 98.4 F 74 16 167/72 H 12/14/20 08:00 Pulse Ox 12/14/20 16:34 12/14/20 16:24 97 12/14/20 11:29 98 12/14/20 09:28 12/14/20 08:54 12/14/20 08:50 12/14/20 08:16 97 12/14/20 08:00 97 Weight Admit Weight 105 lb 11.2 oz Weight 105 lb 11.2 oz I&O: 12/13/20 12/14/20 12/15/20 06:59 06:59 06:59 Intake Total 240 1100 Output Total 425 475 Balance -185 625 Result Diagrams: 12/14/20 06:47 12/14/20 06:47 Additional Labs: Accuchecks 12/14/20 12/14/20 12/14/20 16:12 11:24 05:48 POC Glucose 128 H 227 H 150 H 12/13/20 20:17 POC Glucose 187 H Abnormal Lab Results - Last 48 hrs 12/13/20 04:43: RBC 3.29 L, Hgb 9.2 L, Hct 28.4 L, MPV 5.9 L, Lymphocytes % 17.4 L, Neutrophils # 7.2 H, Monocytes # 0.8 H 12/13/20 04:43: Hemoglobin A1c 6.9 H 12/13/20 04:43: C-Reactive Protein 4.15 H 12/13/20 09:51: Crossmatch See Detail 12/14/20 06:47: RBC 3.00 L, Hgb 8.8 L, Hct 26.0 L, MPV 5.6 L, Neutrophils % 82.7 H, Lymphocytes % 8.9 L, Neutrophils # 8.0 H, Lymphocytes # 0.9 L, Monocytes # 0.7 H Microbiology - Entire Visit 12/12/20 13:49 Venous blood - Left Hand Blood Culture - Preliminary NO GROWTH AT 48 HOURS 12/12/20 13:35 Foot - Pending Bacterial Culture - Final Staphylococcus aureus Pseudomonas aeruginosa 12/12/20 13:49 Venous blood - Right Arm Blood Culture - Preliminary Coagulase Neg Staphylococcus Radiology Reviewed by me: Yes (Foot x-rayreviewed) Hospitalist ROS - Review of Systems Cardiovascular: denies: chest pain, palpitations, orthopnea, paroxysmal noc. dys pnea, edema, light headedness, other Gastrointestinal: denies: nausea, vomiting, abdominal pain, diarrhea, constipation, melena, hematochezia, other - Medication Medications: Active Medications Generic Name Dose Route Start Last Admin Trade Name Freq PRN Reason Stop Dose Admin Acetaminophen 1,000 mg 12/13/20 12:00 12/14/20 11:47 Acetaminophen 500 Mg Tab PO 1,000 mg Q6HR JANETT Administration Hydrocodone Bitart/Acetaminophen 1 tab 12/13/20 10:00 12/14/20 04:07 Hydrocodone/Acetaminophen 10/325 Mg Tablet PO 1 tab Q4H PRN Administration Pain (1-3) Amlodipine Besylate 5 mg 12/13/20 21:00 12/14/20 08:50 Amlodipine 5 Mg Tab PO 5 mg BID JANETT Administration Aspirin 81 mg 12/14/20 09:00 12/14/20 08:51 Aspirin 81 Mg Enteric Coated Tablet PO 81 mg DAILY JANETT Administration Atorvastatin Calcium 20 mg 12/12/20 21:00 12/13/20 21:25 Atorvastatin Calcium 20 Mg Tab PO 20 mg HS JANETT Administration Docusate Sodium 100 mg 12/12/20 21:00 12/14/20 08:54 Docusate 100 Mg Cap PO 100 mg BID JANETT Administration Enoxaparin Sodium 40 mg 12/13/20 09:00 12/14/20 08:52 Enoxaparin Sodium 40 Mg/0.4 Ml Syringe SC 40 mg 0900 JANETT Administration Gabapentin 100 mg 12/13/20 15:00 12/14/20 14:29 Gabapentin 100 Mg Cap PO 100 mg TID JANETT Administration Piperacillin Sod/Tazobactam 100 mls @ 200 mls/hr 12/12/20 22:00 12/14/20 13:37 Sod 3.375 gm/ Sodium Chloride IVPB 100 mls Q8HR JANETT Administration Vancomycin HCl 1.25 gm/ Sodium 250 mls @ 166.667 mls/hr 12/14/20 15:00 12/14/20 15:38 Chloride IVPB 250 mls 1500 JANETT Administration Insulin Human Lispro 0 units 12/12/20 17:08 12/14/20 11:47 Humalog 300 Units/3 Ml Vial SC 3 unit .MILD SLIDING SCALE PRN Administration Mild Correctional Scale Lisinopril 20 mg 12/13/20 09:00 12/14/20 08:54 Lisinopril 20 Mg Tab PO 20 mg DAILY JANETT Administration Metformin HCl 1,000 mg 12/12/20 17:00 12/14/20 08:45 Metformin 500 Mg Tab PO 1,000 mg BID-WM JANETT Administration - Exam General Appearance: NAD Neck: supple, no JVD Heart: RRR, no gallops Respiratory: no wheezes, no ronchi Gastrointestinal: soft, non-tender, normal bowel sounds Extremities: no cyanosis Hosp A/P - Plan DVT proph w/SCDs Left diabetic foot infection with osteomyelitis S/p left BKA on 12/13 Diabetes mellitus type 2 Hypertension Peripheral vascular disease Hypertension Hyperlipidemia Chronic anemia suspected due to nutritional deficiency Hyponatremia Plan: Continue antibioticsvancomycin/Zosyn. Monitor vancomycin level. Pain control. Continue aspirin, lisinopril, amlodipine with sliding scale. Continue other medications as above. A.m. labs 12/13 Status post left below-knee amputation today. Will continue empiric vancomycin and Zosyn. Monitor vancomycin level. Continue sliding scale. Will continue home dose of amlodipine, lisinopril. Continue Lovenox for DVT prophylaxis. Low-dose aspirin. Continue other medications as above
[2020-12-14] MEDS ORDERED: HumaLOG 300 UNITS/3 ML VIAL SC PRN (16:47)
--- NOTE | 2020-12-14 19:02 | PRG ---
DATE OF SERVICE: 12/14/2020 SUBJECTIVE: Ted Alfonso is 80-year-old male patient, one day status post left BKA. Today, he has an infusion catheter and is managing his pain quite well. He has worked with therapy to be out of bed and ambulatory. Temperature 98.2 degrees, heart rate 74, blood pressure 155/70. His daughters at the bedside. LABORATORY DATA: Hemoglobin 8.8, white count 9.7. Basic metabolic profile is normal. Accu-Cheks 150 to 227. Dressings are dry. ASSESSMENT/PLAN: 1. Status post left BKA. Plan is to remove his dressing tomorrow. Begin washing the stump daily with soap and water in a shower chair. Apply antibiotic ointment, Telfa, over the staple line and stump sales representative door to door acquired from HOSPITAL ADMITTING CLERK ([facility]). He will work with Physical Therapy. Since he does not have any financial funding, it is unlikely he will qualify for rehab. He will need to go home. He already has shower chair, crutches, walker, wheelchair. Family will be educated on mobility and transfers. The patient should be able to be discharged home over the weekend or Friday pending his mobility progress. 2. Anemia, chronic, with superimposed minimal blood loss. Should consider workup for his chronic anemia. Job ID: [id number]
[2020-12-14] MEDS: Atorvastatin Calcium 20 MG TAB PO SCH (20:42)
[2020-12-14] MEDS ORDERED: Amlodipine 5 MG TAB PO SCH (21:00)
[2020-12-15] MEDS: Piperacillin/Tazobactam 3.375 GM in Sodium Chloride 0.9% 100 ML IVPB SCH ×2 (04:59→13:49)
[2020-12-15] MEDS: Acetaminophen 500 MG TAB PO SCH ×4 (04:59→23:34)
[2020-12-15 06:41] LABS: #Eosinphils 0.2 thou/uL (0.0-0.7); #Lymphocytes 0.9 thou/uL (1.20-3.40); #Monocytes 0.8 thou/uL (0.11-0.59); #Neutrophils 7.9 thou/uL (1.40-6.50); %Basophils 0.2 % (0.0-1.0); %Eosinophils 1.6 % (0.0-10.0); %Lymphocytes 8.7 % (21.0-51.0); %Monocytes 8.1 % (0.0-10.0); %Neutrophils 81.4 % (42.0-75.0); Hemoglobin 8.6 g/dL (14.0-18.0); Mean Corpuscular HGB CONC 31.1 g/dL (32.0-36.0); Mean Corpuscular Hemoglobin 27.1 pg (27.0-31.0); Mean Corpuscular Volume 87.1 fL (78.0-98.0); Mean Platelet Volume 5.8 fL (7.4-10.4); Platelet Count 263 thou/uL (130-400); RBC Distribution Width 11.8 % (11.5-14.5); Red Blood Cell (RBC) Count 3.17 mill/uL (4.70-6.10); White Blood Cell (WBC) Count 9.8 thou/uL (4.8-10.8)
[2020-12-15] MEDS: metFORMIN 500 MG TAB PO SCH ×2 (08:59→17:43)
[2020-12-15] MEDS: Amlodipine 5 MG TAB PO SCH ×2 (09:04→20:57)
[2020-12-15] MEDS: Aspirin 81 mg Enteric Coated Tablet PO SCH (09:04)
[2020-12-15] MEDS: Docusate 100 MG CAP PO SCH (09:05)
[2020-12-15] MEDS: Lisinopril 20 MG TAB PO SCH (09:05)
[2020-12-15] MEDS: Gabapentin 100 MG CAP PO SCH ×3 (09:05→20:58)
[2020-12-15] MEDS: Enoxaparin Sodium 40 MG/0.4 ML SYRINGE SC SCH (09:06)
[2020-12-15] MEDS: HYDROcodone/Acetaminophen 10/325 mg Tablet PO PRN (10:05)
[2020-12-15] MEDS ORDERED: Bacitracin 1 PK TOP SCH (11:00)
[2020-12-15] MEDS: HumaLOG 300 UNITS/3 ML VIAL SC PRN (11:48)
[2020-12-15 12:00] LABS: Iron 17 ug/dL (65-175); Iron Binding Capacity, Total 159 mcg/dL (261-462)
[2020-12-15 12:17] LABS: Ferritin 346.26 ng/mL (22-322)
--- NOTE | 2020-12-15 13:40 | PDOC.HOSPP ---
- Subjective Encounter Date: 12/15/20 Encounter Time: 10:45 Subjective: Patient seen and examined for diabetic foot infection requiring left below-knee amputation. Pain controlled at this time. Denies any nausea, vomiting. - Objective Vital Signs & Weight: Vital Signs (12 hours) Temp Pulse Resp BP BP Pulse Ox 12/15/20 09:05 161/75 H 12/15/20 09:04 69 161/75 H 12/15/20 08:28 99.4 F 69 18 161/75 H 99 12/15/20 08:00 99 12/15/20 04:14 98.4 F 78 14 161/70 H 97 Weight Admit Weight 105 lb 11.2 oz Weight 105 lb 11.2 oz I&O: 12/14/20 12/15/20 12/16/20 06:59 06:59 06:59 Intake Total 1100 930 Output Total 475 350 Balance 625 580 Result Diagrams: 12/15/20 06:18 12/14/20 06:47 Additional Labs: Accuchecks 12/15/20 12/15/20 12/14/20 10:58 05:48 20:40 POC Glucose 172 H 137 H 146 H 12/14/20 16:12 POC Glucose 128 H Abnormal Lab Results - Last 48 hrs 12/14/20 06:47: RBC 3.00 L, Hgb 8.8 L, Hct 26.0 L, MPV 5.6 L, Neutrophils % 82.7 H, Lymphocytes % 8.9 L, Neutrophils # 8.0 H, Lymphocytes # 0.9 L, Monocytes # 0.7 H 12/15/20 06:18: RBC 3.17 L, Hgb 8.6 L, Hct 27.6 L, MCHC 31.1 L, MPV 5.8 L, Neutrophils % 81.4 H, Lymphocytes % 8.7 L, Neutrophils # 7.9 H, Lymphocytes # 0.9 L, Monocytes # 0.8 H 12/15/20 11:16: Iron 17 L, TIBC 159 L 12/15/20 11:16: Ferritin 346.26 H 12/15/20 11:16: Folate 4.20 L Microbiology - Entire Visit 12/12/20 13:49 Venous blood - Right Arm Blood Culture - Final Coagulase Neg Staphylococcus 12/12/20 13:49 Venous blood - Left Hand Blood Culture - Preliminary NO GROWTH AT 48 HOURS 12/12/20 13:35 Foot - Pending Bacterial Culture - Final Staphylococcus aureus Pseudomonas aeruginosa Hospitalist ROS - Review of Systems Cardiovascular: denies: chest pain, palpitations, orthopnea, paroxysmal noc. dyspnea, edema, light headedness, other Gastrointestinal: denies: nausea, vomiting, abdominal pain, diarrhea, constipation, melena, hematochezia, other - Medication Medications: Active Medications Generic Name Dose Route Start Last Admin Trade Name Freq PRN Reason Stop Dose Admin Acetaminophen 1,000 mg 12/13/20 12:00 12/15/20 11:46 Acetaminophen 500 Mg Tab PO 1,000 mg Q6HR JANETT Administration Hydrocodone Bitart/Acetaminophen 1 tab 12/13/20 10:00 12/15/20 10:05 Hydrocodone/Acetaminophen 10/325 Mg Tablet PO 1 tab Q4H PRN Administration Pain (1-3) Amlodipine Besylate 5 mg 12/13/20 21:00 12/15/20 09:04 Amlodipine 5 Mg Tab PO 5 mg BID JANETT Administration Aspirin 81 mg 12/14/20 09:00 12/15/20 09:04 Aspirin 81 Mg Enteric Coated Tablet PO 81 mg DAILY JANETT Administration Atorvastatin Calcium 20 mg 12/12/20 21:00 12/14/20 20:42 Atorvastatin Calcium 20 Mg Tab PO 20 mg HS JANETT Administration Bacitracin 1 pk 12/15/20 11:00 12/15/20 11:49 Bacitracin 1 Pk TOP 12/15/20 14:00 1 pk NOW JANETT Administration Docusate Sodium 100 mg 12/12/20 21:00 12/15/20 09:05 Docusate 100 Mg Cap PO 100 mg BID JANETT Administration Enoxaparin Sodium 40 mg 12/13/20 09:00 12/15/20 09:06 Enoxaparin Sodium 40 Mg/0.4 Ml Syringe SC 40 mg 0900 JANETT Administration Gabapentin 100 mg 12/13/20 15:00 12/15/20 09:05 Gabapentin 100 Mg Cap PO 100 mg TID JANETT Administration Piperacillin Sod/Tazobactam 100 mls @ 200 mls/hr 12/12/20 22:00 12/15/20 04:59 Sod 3.375 gm/ Sodium Chloride IVPB 100 mls Q8HR JANETT Administration Ropivacaine 250 ml/ Device 250 mls @ 6 mls/hr 12/13/20 10:00 12/15/20 04:44 NERVE BLCK 12/16/20 09:59 250 mls INF JANETT Administration As Directed Vancomycin HCl 1.25 gm/ Sodium 250 mls @ 166.667 mls/hr 12/14/20 15:00 12/14/20 15:38 Chloride IVPB 250 mls 1500 JAENTT Administration Insulin Human Lispro 0 units 12/12/20 17:08 12/15/20 11:48 Humalog 300 Units/3 Ml Vial SC 2 unit .MILD SLIDING SCALE PRN Administration Mild Correctional Scale Lisinopril 20 mg 12/13/20 09:00 12/15/20 09:05 Lisinopril 20 Mg Tab PO 20 mg DAILY JANETT Administration Metformin HCl 1,000 mg 12/12/20 17:00 12/15/20 08:59 Metformin 500 Mg Tab PO 1,000 mg BID-WM JANETT Administration - Exam General Appearance: NAD Neck: supple, no JVD Heart: RRR, no gallops Respiratory: no wheezes, no ronchi Gastrointestinal: non-tender, normal bowel sounds Extremities: no cyanosis Extremities - other findings: Left BKA woundstable Hosp A/P - Plan Left diabetic foot infection with osteomyelitis S/p left BKA on 12/13 Diabetes mellitus type 2 Hypertension Peripheral vascular disease Hypertension Hyperlipidemia Chronic anemia suspected due to nutritional deficiency Hyponatremia Constipation Plan: Patient remains hemodynamically stable. Blood pressure on the higher side. Hemoglobin was 8.6 this morning. Iron profile showed iron of 17 with TIBC 159 and ferritin at 346 probably due to anemia of chronic disease. His folic acid is low at 4.2. His vitamin B12 is also on the lower side. Will initiate vitamin B12 and folic acid supplementation. Continue vancomycin with Zosyn with vancomycin level monitoring. Change Colace to Senokot-S. We will continue amlodipine 5 mg twice daily with 20 mg lisinopril. Avoid lisinopril increase due to potassium on the high normal range. Will add hydralazine. Continue pain control with block. A.m. labs continue other medications as above. 12/14 Continue antibioticsvancomycin/Zosyn. Monitor vancomycin level. Pain control. Continue aspirin, lisinopril, amlodipine with sliding scale. Continue other medications as above. A.m. labs 12/13 Status post left below-knee amputation today. Will continue empiric vancomycin and Zosyn. Monitor vancomycin level. Continue sliding scale. Will continue home dose of amlodipine, lisinopril. Continue Lovenox for DVT prophylaxis. Low-dose aspirin. Continue other medications as above
[2020-12-15] MEDS: Vancomycin HCl 1.25 GM in Sodium Chloride 0.9% 250 ML 250 ML IVPB SCH (14:36)
[2020-12-15] MEDS: hydrALAZINE 25 MG TAB PO SCH ×2 (14:38→20:57)
--- NOTE | 2020-12-15 15:25 | PRG ---
DATE OF SERVICE: 12/15/2020 SUBJECTIVE: Mr. Alfonso is doing well 2 days after BKA. OBJECTIVE: VITAL SIGNS: 183/73 blood pressure, 18 respiratory rate, and 99% saturation. LUNGS: Clear to auscultation. CARDIAC: Regular rate and rhythm without murmur or gallop. ABDOMEN: Soft. EXTREMITIES: Left BKA stump well healed, wound looks good. LABORATORY DATA: Hemoglobin 8.6 and white count 9.8. Basic metabolic profile normal. ASSESSMENT AND PLAN: Peripheral arterial disease with left below-knee amputation. Continue mobility with physical therapy, daily wash the wound with soap and water and a shower chair in the shower and apply antibiotic ointment, Telfa, and a stump senior dynamics crm developer. The patient does not have financial resources and has not accepted at a nursing home or rehab. He will have to work on mobility and transfer training, and whenever he is safe to go home, he can be discharged. He should follow up in my office in approximately 2 to 3 weeks for staple removal. I will see him this weekend as needed. Dr. Norris is covering. Please call if needed. I will see him in the hospital Friday if he is still here. If he does go home, I will need to see him in my office in 2 to 3 weeks for staple removal. Job ID: [id number]
[2020-12-15] MEDS ORDERED: Ondansetron ORAL SOLN. 4 MG/5 ML UDCUP PO PRN ×2 (19:25)
[2020-12-15] MEDS ORDERED: traMADol HCl 50 MG TAB PO PRN (19:26)
[2020-12-15] MEDS ORDERED: Ondansetron ODT 4 MG TAB SL PRN (20:18)
[2020-12-15] MEDS: Cyanocobalamin (Vitamin B-12) 1,000 MCG TAB PO SCH (20:59)
[2020-12-15] MEDS: Folic Acid 1 MG TAB PO SCH (20:59)
[2020-12-15] MEDS: Atorvastatin Calcium 20 MG TAB PO SCH (21:00)
[2020-12-15] MEDS: Senokot S 8.6-50 MG TAB PO SCH (21:00)
[2020-12-16 05:09] LABS: #Eosinphils 0.4 thou/uL (0.0-0.7); #Lymphocytes 1.2 thou/uL (1.20-3.40); #Monocytes 0.7 thou/uL (0.11-0.59); #Neutrophils 7.4 thou/uL (1.40-6.50); %Eosinophils 3.7 % (0.0-10.0); %Lymphocytes 12.3 % (21.0-51.0); %Monocytes 6.8 % (0.0-10.0); %Neutrophils 77.2 % (42.0-75.0); Hemoglobin 8.7 g/dL (14.0-18.0); Mean Corpuscular HGB CONC 32.7 g/dL (32.0-36.0); Mean Corpuscular Hemoglobin 28.7 pg (27.0-31.0); Mean Corpuscular Volume 87.5 fL (78.0-98.0); Mean Platelet Volume 6.3 fL (7.4-10.4); Platelet Count 247 thou/uL (130-400); RBC Distribution Width 11.8 % (11.5-14.5); Red Blood Cell (RBC) Count 3.04 mill/uL (4.70-6.10); White Blood Cell (WBC) Count 9.6 thou/uL (4.8-10.8)
[2020-12-16 05:32] LABS: Anion Gap 13 mmol/L (10-20); BUN (Urea Nitrogen) 24 mg/dL (8.4-25.7); Calc. Creatinine Clearance 38 mL/min (70-130); Calcium 8.3 mg/dL (7.8-10.44); Carbon Dioxide 22 mmol/L (23-31); Chloride 105 mmol/L (98-107); Glucose 116 mg/dL (83-110); Potassium 4.3 mmol/L (3.5-5.1); Sodium 136 mmol/L (136-145)
[2020-12-16] MEDS: Acetaminophen 500 MG TAB PO SCH ×4 (05:53→23:32)
[2020-12-16] MEDS: Aspirin 81 mg Enteric Coated Tablet PO SCH (08:28)
[2020-12-16] MEDS: Polyethylene Glycol 3350 17 GM Packet PO SCH (08:28)
[2020-12-16] MEDS: Senokot S 8.6-50 MG TAB PO SCH ×2 (08:28→20:37)
[2020-12-16] MEDS: Lisinopril 20 MG TAB PO SCH (08:28)
[2020-12-16] MEDS: metFORMIN 500 MG TAB PO SCH ×2 (08:28→18:18)
[2020-12-16] MEDS: Enoxaparin Sodium 40 MG/0.4 ML SYRINGE SC SCH (08:28)
[2020-12-16] MEDS: Gabapentin 100 MG CAP PO SCH ×3 (08:28→20:37)
[2020-12-16] MEDS: hydrALAZINE 25 MG TAB PO SCH ×3 (08:29→20:36)
[2020-12-16] MEDS: Amlodipine 5 MG TAB PO SCH ×2 (08:29→20:37)
[2020-12-16] MEDS: Bacitracin 1 PK TOP SCH (10:00)
--- NOTE | 2020-12-16 16:55 | PDOC.HOSPP ---
- Subjective Encounter Date: 12/16/20 Encounter Time: 11:00 Subjective: Patient seen and examined for diabetic foot infection. Pain controlled. Denies any nausea or vomiting. No fever or chills reported. - Objective Vital Signs & Weight: Vital Signs (12 hours) Temp Pulse Resp BP BP BP Pulse Ox 12/16/20 15:51 71 12/16/20 09:30 139/64 12/16/20 08:29 71 12/16/20 08:28 171/75 H 12/16/20 08:10 99.9 F H 71 16 158/74 H 98 Weight Admit Weight 105 lb 11.2 oz Weight 105 lb 11.2 oz I&O: 12/15/20 12/16/20 12/17/20 06:59 06:59 06:59 Intake Total 930 240 Output Total 350 Balance 580 240 Result Diagrams: 12/16/20 04:24 12/16/20 04:24 Additional Labs: Accuchecks 12/16/20 12/16/20 12/16/20 15:54 11:09 05:29 POC Glucose 161 H 136 H 117 H 12/15/20 20:43 POC Glucose 138 H Hospitalist ROS - Review of Systems Cardiovascular: denies: chest pain, palpitations, orthopnea, paroxysmal noc. dyspnea, edema, light headedness, other Gastrointestinal: denies: nausea, vomiting, abdominal pain, diarrhea, constipation, melena, hematochezia, other - Medication Medications: Active Medications Generic Name Dose Route Start Last Admin Trade Name Hankq PRN Reason Stop Dose Admin Acetaminophen 1,000 mg 12/13/20 12:00 12/16/20 12:24 Acetaminophen 500 Mg Tab PO 1,000 mg Q6HR JANETT Administration Amlodipine Besylate 5 mg 12/13/20 21:00 12/16/20 08:29 Amlodipine 5 Mg Tab PO 5 mg BID JANETT Administration Aspirin 81 mg 12/14/20 09:00 12/16/20 08:28 Aspirin 81 Mg Enteric Coated Tablet PO 81 mg DAILY JANETT Administration Atorvastatin Calcium 20 mg 12/12/20 21:00 12/15/20 21:00 Atorvastatin Calcium 20 Mg Tab PO 20 mg HS JANETT Administration Bacitracin 1 pk 12/16/20 09:00 12/16/20 10:00 Bacitracin 1 Pk TOP 1 pk DAILY JANETT Administration Cyanocobalamin 1,000 mcg 12/15/20 21:00 12/15/20 20:59 Cyanocobalamin (Vitamin B-12) 1,000 Mcg Tab PO 1,000 mcg HS JANETT Administration Enoxaparin Sodium 40 mg 12/13/20 09:00 12/16/20 08:28 Enoxaparin Sodium 40 Mg/0.4 Ml Syringe SC 40 mg 0900 JANETT Administration Folic Acid 1 mg 12/15/20 21:00 12/15/20 20:59 Folic Acid 1 Mg Tab PO 1 mg HS JANETT Administration Gabapentin 100 mg 12/13/20 15:00 12/16/20 15:51 Gabapentin 100 Mg Cap PO 100 mg TID JANETT Administration Hydralazine HCl 25 mg 12/15/20 15:00 12/16/20 15:51 Hydralazine 25 Mg Tab PO 25 mg TID JANETT Administration Insulin Human Lispro 0 units 12/12/20 17:08 12/15/20 11:48 Humalog 300 Units/3 Ml Vial SC 2 unit .MILD SLIDING SCALE PRN Administration Mild Correctional Scale Lisinopril 20 mg 12/13/20 09:00 12/16/20 08:28 Lisinopril 20 Mg Tab PO 20 mg DAILY JANETT Administration Metformin HCl 1,000 mg 12/12/20 17:00 12/16/20 08:28 Metformin 500 Mg Tab PO 1,000 mg BID-WM JANETT Administration Polyethylene Glycol 17 gm 12/16/20 09:00 12/16/20 08:28 Polyethylene Glycol 3350 17 Gm Packet PO 17 gm DAILY JANETT Administration Senna/Docusate Sodium 2 tab 12/15/20 21:00 12/16/20 08:28 Senokot S 8.6-50 Mg Tab PO 2 tab BID JANETT Administration - Exam General Appearance: NAD Heart: RRR, no gallops Respiratory: no wheezes, no ronchi Gastrointestinal: soft, non-tender, normal bowel sounds Extremities: no cyanosis Neurological: no new deficit Hosp A/P - Plan 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 Vitals remained stable. Current medications reviewed. Hemoglobin stable at 8.7. Continue pain control. Continue physical therapy. Continue Lovenox for DVT prophylaxis. Continue hydralazine, lisinopril and other medications as above. Continue gabapentin 12/15 Patient remains hemodynamically stable. Blood pressure on the higher side. Hemoglobin was 8.6 this morning. Iron profile showed iron of 17 with TIBC 159 and ferritin at 346 probably due to anemia of chronic disease. His folic acid is low at 4.2. His vitamin B12 is also on the lower side. Will initiate vitamin B12 and folic acid supplementation. Continue vancomycin with Zosyn with vancomycin level monitoring. Change Colace to Senokot-S. We will continue amlodipine 5 mg twice daily with 20 mg lisinopril. Avoid lisinopril increase due to potassium on the high normal range. Will add hydralazine. Continue pain control with block. A.m. labs continue other medications as above. 12/14 Continue antibioticsvancomycin/Zosyn. Monitor vancomycin level. Pain control. Continue aspirin, lisinopril, amlodipine with sliding scale. Continue other medications as above. A.m. labs 12/13 Status post left below-knee amputation today. Will continue empiric vancomycin and Zosyn. Monitor vancomycin level. Continue sliding scale. Will continue home dose of amlodipine, lisinopril. Continue Lovenox for DVT prophylaxis. Low-dose aspirin. Continue other medications as above
[2020-12-16] MEDS: Folic Acid 1 MG TAB PO SCH (20:36)
[2020-12-16] MEDS: Cyanocobalamin (Vitamin B-12) 1,000 MCG TAB PO SCH (20:37)
[2020-12-16] MEDS: Atorvastatin Calcium 20 MG TAB PO SCH (20:37)
[2020-12-16] MEDS: Ibuprofen 600 MG TAB PO PRN (20:37)
[2020-12-17] MEDS: Acetaminophen 500 MG TAB PO SCH ×2 (05:56→12:01)
[2020-12-17] MEDS: Gabapentin 100 MG CAP PO SCH ×2 (08:35→15:07)
[2020-12-17] MEDS: Ibuprofen 600 MG TAB PO PRN (08:35)
[2020-12-17] MEDS: Enoxaparin Sodium 40 MG/0.4 ML SYRINGE SC SCH (08:35)
[2020-12-17] MEDS: Polyethylene Glycol 3350 17 GM Packet PO SCH (08:35)
[2020-12-17 08:36] VITALS: BP 148/65
[2020-12-17] MEDS: metFORMIN 500 MG TAB PO SCH (08:36)
[2020-12-17] MEDS: Lisinopril 20 MG TAB PO SCH (08:36)
[2020-12-17] MEDS: Senokot S 8.6-50 MG TAB PO SCH (08:36)
[2020-12-17] MEDS: Amlodipine 5 MG TAB PO SCH (08:36)
[2020-12-17] MEDS: hydrALAZINE 25 MG TAB PO SCH ×2 (08:36→15:07)
[2020-12-17] MEDS: Aspirin 81 mg Enteric Coated Tablet PO SCH (08:36)
[2020-12-17] MEDS: Bacitracin 1 PK TOP SCH (08:38)
--- NOTE | 2020-12-17 09:43 | CON ---
DATE OF CONSULTATION: 12/16/2020 CONSULTING PHYSICIAN: José Miguel Desai MD REASON FOR CONSULTATION: Anemia. HISTORY OF PRESENT ILLNESS: Mr. Alfonso is a gentleman, who is 80 years old, who was in the hospital for osteomyelitis and had a left BKA done. After his surgery, he was noted to be more anemic than he was when he was admitted. I was asked to evaluate him for possible anemia. Talking to the patient's daughter, she states he has been eating well prior to admission. She states he had a colonoscopy not long ago that was normal, apparently it was related to a surgery he had with his intestines recently. He has had no bleeding or change in bowel function or weight loss. His amputation is apparently related to his diabetes. I talked with the nurses. He has had brown stools. He denies any prior history of ulcers. His family notes there is no family history of colon cancer. PAST MEDICAL HISTORY: history of CVA; type 2 diabetes; peripheral vascular disease; hypertension; osteomyelitis of left foot, status post removal. PAST SURGICAL HISTORY: Previous stent placement in the left leg, now with left below-knee amputation. SOCIAL HISTORY: No smoking, drugs, or alcohol. Lives at home with family. and daughter here. ALLERGIES: NONE KNOWN. HOME MEDICATIONS: 1. Lisinopril. 2. Metformin. He is currently on clindamycin for an infection. PRESENT MEDICATIONS: 1. Tylenol. 2. Norvasc. 3. Lipitor. 4. Bactrim. 5. B12, started yesterday. 6. Lovenox. 7. PRN fentanyl. 8. Apresoline. 9. Ibuprofen 600 mg q.6 p.r.n. 10. Zofran. 11. Lisinopril. 12. Metformin. REVIEW OF SYSTEMS: Negative for dysphagia, odynophagia, weight loss, change in appetite, melena, hematochezia, or hematemesis. The daughter thought that he had a colonoscopy before he was here in May. He had a CAT scan, but not a colonoscopy and apparently he was here for partial bowel obstruction of the small bowel with feculent material, possibly secondary to phytobezoar. it was normal. Apparently there was concern about partial obstruction at that time, but symptoms resolved with no surgical intervention within 24 hours of admission. PHYSICAL EXAMINATION: VITAL SIGNS: Temperature 99.9, pulse 71, blood pressure 139/64. GENERAL: He is thin and frail, sitting up in bed. He has a bandage on his left leg just below the knee, consistent with recent amputation. LUNGS: Clear. HEART: Regular rate and rhythm without clicks or murmurs. ABDOMEN: Soft and nontender. There is no rebound. There is no guarding. LABORATORY STUDIES: Hemoglobin was 11 to 12.8 in May and August of last year. He came in on the , it was 10.3, after surgery it was 9.2, 8.8, 8.6, and 8.7; MCV is 87; platelet count 247. BUN and creatinine are 24 and 1.03. Ferritin is 346, iron 17, TIBC is low at 159. B12 is 327, folate 4.2. Liver function tests normal. ASSESSMENT: Anemia with normocytic, normochromic indices and iron studies consistent with anemia of chronic disease. The patient has no active gastrointestinal symptoms. He was in here with constipation last summer. I talked with the patient via his daughter, dunia, about options of endoscopic evaluation, although it seems that there is no clear evidence that this anemia is related to gastrointestinal blood loss. The daughter states that they want to let him get over surgery before doing other testing unless it is an emergency. RECOMMENDATIONS: Consider general iron supplementation, although it seems he has anemia of chronic disease with low iron, low TIBC, and elevated ferritin. If there are any signs of acute GI bleed, I would be more happy to re-evaluate him per endoscopy. At this point in time, family refuses based on recent surgery and that is probably not unreasonable. We will sign off. If I can be of any further assistance, please do not hesitate to contact me. Job ID: [id number]
[2020-12-17 12:24] VITALS: TEMP 99.8
--- NOTE | 2020-12-17 16:22 | PDOC.DS.DS ---
Provider - Provider Date of Admission: 12/12/20 15:36 Date of Discharge: 12/17/20 Admitting Provider: Ashish Nugent MD Consultations: Gastroentrology, General Surgery Primary Care Physician: Tere Strong NP Course - Hospital Course Hospital Course: Patient is 80-year-old male with peripheral vascular disease status post left lower extremity stent last year presented to the emergency room on 12/12 with worsening of the left great toe wound despite taking oral antibiotics. Please refer to the history and physical dated 12/12 for further details. The patient was admitted to the hospital with a diagnosis of diabetic foot infection. He was started on broad-spectrum antibiotics. General surgery was consulted who recommended left below-knee amputation. Patient underwent above procedure on 12/13 without any complication. His wound is healing well. Due to anemia he was also evaluated by gastroenterology who recommended outpatient follow-up. His iron profile showed iron of 17, TIBC of 159, ferritin of 346. He also was found to have folic acid deficiency with folate of 4.2. His vitamin B12 was also in the low normal range at 327. He has been started on supplementation. His hemoglobin A1c was 6.9. He has been cleared by consultants for discharge. Plan of care was discussed with the family who understand the above plan of care. 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 He also had extensive arteriosclerosis - Labs Lab Results: 12/16/20 04:24 12/16/20 04:24 Abnormal Lab Results - Last 48 hrs 12/13/20 09:51: Crossmatch See Detail 12/16/20 04:24: Carbon Dioxide 22 L 12/16/20 04:24: RBC 3.04 L, Hgb 8.7 L, Hct 26.6 L, MPV 6.3 L, Neutrophils % 77.2 H, Lymphocytes % 12.3 L, Neutrophils # 7.4 H, Monocytes # 0.7 H Microbiology - Entire Visit 12/12/20 13:49 Venous blood - Right Arm Blood Culture - Final Coagulase Neg Staphylococcus 12/12/20 13:49 Venous blood - Left Hand Blood Culture - Preliminary NO GROWTH AT 48 HOURS 12/12/20 13:35 Foot - Pending Bacterial Culture - Final Staphylococcus aureus Pseudomonas aeruginosa - Physical Exam Vitals: Vital Signs (12 hours) Temp Pulse Resp BP BP Pulse Ox 12/17/20 15:07 70 148/65 H 12/17/20 12:23 99.8 F H 12/17/20 08:36 70 148/65 H 12/17/20 08:20 99.3 F 70 16 131/64 99 12/17/20 05:55 98.0 F Weight Admit Weight 105 lb 11.2 oz Weight 105 lb 11.2 oz Physical Exam: The patient was seen and examined on the day of discharge. Plan - Discharge Medications Prescriptions: hydrALAZINE [Apresoline] 25 mg PO TID #90 tab Ferrous Sulfate 325 mg PO BID #60 tab Folic Acid [Folvite] 1 mg PO DAILY #30 tab Gabapentin [Neurontin] 100 mg PO TID #90 cap traMADol HCl [Tramadol HCl] 50 mg PO Q8H PRN #14 tablet PRN Reason: Severe Pain (7-10) Cyanocobalamin (Vitamin B-12) [Vitamin B-12] 1,000 mcg PO DAILY #30 tab Home Medications: Medication Instructions Recorded Confirmed Type Lisinopril 40 mg PO DAILY 06/04/20 12/12/20 History metFORMIN HCl [Metformin HCl] 1,000 mg PO BID 06/04/20 12/12/20 History Amlodipine [Norvasc] 10 mg PO DAILY 12/12/20 12/12/20 History Acetaminophen [Tylenol Extra 1,000 mg PO Q6HR tab 12/17/20 Rx Strength] Aspirin [Ecotrin Low Strength] 81 mg PO DAILY tab 12/17/20 Rx Bacitracin [Bacitracin Zinc 1 pk TOP DAILY pk 12/17/20 Rx Ointment] Cyanocobalamin (Vitamin B-12) 1,000 mcg PO DAILY #30 tab 12/17/20 Rx [Vitamin B-12] Ferrous Sulfate 325 mg PO BID #60 tab 12/17/20 Rx Folic Acid [Folvite] 1 mg PO DAILY #30 tab 12/17/20 Rx Gabapentin [Neurontin] 100 mg PO TID #90 cap 12/17/20 Rx hydrALAZINE [Apresoline] 25 mg PO TID #90 tab 12/17/20 Rx traMADol HCl [Tramadol HCl] 50 mg PO Q8H PRN #14 tablet 12/17/20 Rx Allergies: No Known Drug Allergies Allergy (Verified 09/20/20 16:03) - Discharge Instructions Discharge Instructions:: Notify MD or return to the ER for any of the following symptoms: fever, chills, shortness of breath, abnormal drainage from wound, redness/swelling wound, or uncontrolled pain. - Follow up Plan Referrals: José Miguel Desai MD [Active] - 2-3 Weeks (Call office to schedule f/u appointment for staple removal) Jose Perkins MD [Active] - 2-3 Weeks (No need for follow-up) Tere Strong NP [Primary Care Provider] - 10 Days (Call office to schedule follow-up appointment) Disposition: HOME Quality - Care Measures CORE MEASURES:: N/A
--- NOTE | 2020-12-19 01:22 | PQF ---
Dear : Rito Ng Date 12/19/20 Please exercise your independent, professional judgment in responding to the clarification form. Clinical indicators are provided on the bottom of this form for your review Can you please further clarify the nutritional status of the patient? Please check appropriate box(es): [ ] Protein Calorie Malnutrition: [ ] Mild [ x ] Moderate [ ] Severe [ ] Other Malnutrition (please specify) [ ] Underweight without malnutrition [ ] Cachexia [ ] Other diagnosis [ ] Unable to determine Physician Signature: Date/Time: For continuity of documentation, please document condition throughout progress notes and discharge summary. Thank You. To be completed by CDI/Coding staff for physician review: Present Clinical Indicators - Signs / Symptoms / Labs Results and Location in Medical Record [ x ] BMI 18.7 Nutritional assessment 12/15 [ x ] ROS: Negative for dysphagia, odynophagia,weight loss, change in appetite Consult pg.2 Reji Vasquez 12/16 [ x ] He is thin and frail Consult pg.3 Reji Vasquez 12/16 [ x ] Found to have folic acid deficiency with folate of 4.2. Nutritional assessment 12/15 [ x ] His Vit B12 was in the low normal range at 327 Nutritional assessment 12/15 [ x ] Moderate muscle wasting in clavicle, shoulder and temples Nutritional assessment 12/15 [ x ] 29.9% weight loss in the last 6 months Nutritional assessment 12/15 [ x ] Meeting moderate chronic malnutrition Nutritional assessment 12/15 [ x ] Albumin=1.1 Total Protein=7.1 Laboratory 12/12 Present Risk Factors Results and Location in Medical Record [ x ] 80 years old H and P pg.1 [ x ] DM H and P pg.1 [ x ] CVA H and P pg.1 [ x ] HTN H and P pg.1 [ x ] PVD H and P pg.1 [ x ] s/p BKA Nutritional assessment 12/15 Present Treatments Results and Location in Medical Record [ x ] Dietary consult Nutritional assessment 09/09 [ x ] Nutritional supplements Nutritional assessment 09/09 [ x ] IV Fluids MAR [ x ] Cyanocobalamin 1000nxg PO MAR [ x ] Folic acid 1mg PO MAR [ x ] Recommend Glucerna Shakes BID Nutritional assessment 09/14 [ x ] Monitor weight change Nutritional assessment 09/14 [ x ] Monitor total protein intake Nutritional assessment 09/14 [facility] Physician Signature: Castro Lindsey Phone #: ext [phone] Date 12/19/20 Moderate Malnutrition (in acute illness) ? Energy Intake: <75% of estimated energy requirement for > 7 days ? Weight Loss: 1-2%/1 week; 5%/ 1 month; 7.5%/3 months ? Other: mild body fat loss; mild muscle mass loss; mild fluid accumulation; Severe Malnutrition (in acute illness) ? Energy Intake: ? 50% of estimated energy requirement for ? 5 days ? Weight Loss: >2%/1 week; >5%/1 month; >7.5%/3 months ? Other: moderate body fat loss; moderate muscle mass loss; moderate- severe fluid accumulation; measurably reduced foreign car mechanic strength Moderate Malnutrition (in chronic illness) ? Energy Intake: <75% of estimated energy requirement for ?1 month ? Weight Loss: 5%/1 month; 7.5%/3 months; 10%/6 months; 20%/1 year ? Other: mild body fat loss; mild muscle mass loss; mild fluid accumulation Severe Malnutrition (in chronic illness) ? Energy Intake: ?75% of estimated energy requirement for ?1 month ? Weight Loss: >5%/1 month; >7.5%/3 months; >10%/6 months; >20%/1 year ? Other: severe body fat loss; severe muscle mass loss; severe fluid accumulation; measurably reduced foreign car mechanic strength This is a permanent part of the Medical Record [facility]
== END 2020-12-17 15:20 | disposition home or self-care (01) | DRG 240 ==
LOC: ERS 11:13 → OBSVTOIN 15:36 → ONC 15:36
PROVIDERS: ADMIT Internal Medicine; ATTEND Internal Medicine
PROC: 0Y6J0Z1 Detachment at Left Lower Leg, High, Open Approach (ICD-10-PCS; principal; 2020-12-13)
DX: E11.52 Type 2 diabetes mellitus with diabetic peripheral angiopathy with gangrene (principal); M86.172 Other acute osteomyelitis, left ankle and foot; E87.1 Hypo-osmolality and hyponatremia; E44.0 Moderate protein-calorie malnutrition; Z68.1 Body mass index [BMI] 19.9 or less, adult; I96 Gangrene, not elsewhere classified; E11.69 Type 2 diabetes mellitus with other specified complication; Z20.822 Contact with and (suspected) exposure to COVID-19; Z23 Encounter for immunization; I10 Essential (primary) hypertension; I70.222 Atherosclerosis of native arteries of extremities with rest pain, left leg; E78.00 Pure hypercholesterolemia, unspecified; D53.9 Nutritional anemia, unspecified; D52.9 Folate deficiency anemia, unspecified; K59.00 Constipation, unspecified; Z86.73 Personal history of transient ischemic attack (TIA), and cerebral infarction without residual deficits; Z98.890 Other specified postprocedural states; Z79.84 Long term (current) use of oral hypoglycemic drugs; Z79.899 Other long term (current) drug therapy; Z90.49 Acquired absence of other specified parts of digestive tract
CPT/HCPCS: 36415; 36416; 80048; 80053; 80061; 80202; 82607; 82728; 82746; 83036; 83540; 83550; 83605; 83735; 85025; 85652; 86140; 86850; 86900; 86901; 87040; 87070; 87077; 87149; 87186; 87205; 87635; 88307; 88311; 90471; 90732; 94760; 96365; 96366; 96367; 96375; G0009; J1650; J2270; J2405; J2543; J2704; J2795; J3010; J3370; J3490; J7050; L8440; U0003; U0005

== ENCOUNTER 2021-01-01 16:18 | Emergency (ER) | payer MEDICAID, SELFPAY ==
[2021-01-01 17:11] LABS: #Basophils 0.1 thou/uL (0.0-0.2); #Eosinphils 0.5 thou/uL (0.0-0.7); #Lymphocytes 1.3 thou/uL (1.20-3.40); #Monocytes 0.7 thou/uL (0.11-0.59); #Neutrophils 8.1 thou/uL (1.40-6.50); %Basophils 0.5 % (0.0-1.0); %Eosinophils 4.9 % (0.0-10.0); %Monocytes 6.5 % (0.0-10.0); Hemoglobin 10.4 g/dL (14.0-18.0); Mean Corpuscular HGB CONC 33.1 g/dL (32.0-36.0); Mean Corpuscular Hemoglobin 29.2 pg (27.0-31.0); Mean Corpuscular Volume 88.4 fL (78.0-98.0); Mean Platelet Volume 6.4 fL (7.4-10.4); Platelet Count 378 thou/uL (130-400); RBC Distribution Width 13.6 % (11.5-14.5); Red Blood Cell (RBC) Count 3.56 mill/uL (4.70-6.10); White Blood Cell (WBC) Count 10.6 thou/uL (4.8-10.8)
[2021-01-01 17:31] LABS: ALT (SGPT) 21 U/L (8-55); AST (SGOT) 14 U/L (5-34); Albumin 3.9 g/dL (3.4-4.8); Alkaline Phosphatase 100 U/L (40-110); Anion Gap 12 mmol/L (10-20); BUN (Urea Nitrogen) 34 mg/dL (8.4-25.7); Bilirubin, Total 0.3 mg/dL (0.2-1.2); Calc. Creatinine Clearance 0 mL/min (70-130); Calcium 9.3 mg/dL (7.8-10.44); Carbon Dioxide 26 mmol/L (23-31); Chloride 105 mmol/L (98-107); Globulin 4.3 g/dL (2.4-3.5); Glucose 148 mg/dL (83-110); Potassium 5.2 mmol/L (3.5-5.1); Protein, Total 8.2 g/dL (5.8-8.1); Sodium 138 mmol/L (136-145)
[2021-01-01] MEDS ORDERED: Cephalexin 250 MG CAP ONE (19:33)
== END 2021-01-01 19:41 | disposition home or self-care (01) ==
LOC: ERS 16:18
DX: T87.43 Infection of amputation stump, right lower extremity (principal); I10 Essential (primary) hypertension; E11.9 Type 2 diabetes mellitus without complications; Z86.73 Personal history of transient ischemic attack (TIA), and cerebral infarction without residual deficits; Z79.84 Long term (current) use of oral hypoglycemic drugs; Z79.899 Other long term (current) drug therapy
CPT/HCPCS: 36415; 80053; 83605; 85025; 87040; 99283